=== PATIENT | female | born 1980 | race African-American/Black ===

== ENCOUNTER 2016-05-09 13:56 | Emergency (ER) | payer SELFPAY ==
[2016-05-09] MEDS ORDERED: PROMETHAZINE HCL 25 MG TABLET PO ONE (14:45)
--- NOTE | 2016-05-09 14:45 | ER Document Report ---
ED Medical Screen (RME) - General Stated Complaint: DIARRHEA,VOMITING Time seen by provider: 14:43 Mode of Arrival: Ambulatory Information source: Patient Notes: 36-year-old female presents to ED for diarrhea and vomiting with chills she denies fevers. Take this been going on for 2 days. She states that she has lower abdominal pain bilaterally for 2 days. 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 Last menstrual period was 02/21/2016. She states she is normally regular but she's taken several tests that were negative I have greeted and performed a rapid initial assessment of this patient. A comprehensive ED assessment and evaluation of the patient, analysis of test results and completion of medical decision making process will be conducted by an additional ED providers. TRAVEL OUTSIDE OF THE U.S. IN LAST 30 DAYS: No - Related Data Allergies/Adverse Reactions: No Known Allergies Allergy (Verified 08/04/13 06:59) Past Medical History - Past Medical History Cardiac Medical History: Reports: Hx Hypertension - Immunizations Hx Diphtheria, Pertussis, Tetanus Vaccination: Yes Physical Exam - Vital signs Vitals: Temp Pulse Resp BP Pulse Ox 98.2 F 91 16 141/91 H 98 05/09/16 14:41 05/09/16 14:41 05/09/16 14:41 05/09/16 14:41 05/09/16 14:41 Course - Vital Signs Vital signs: Temp Pulse Resp BP Pulse Ox 98.2 F 91 16 141/91 H 98 05/09/16 14:41 05/09/16 14:41 05/09/16 14:41 05/09/16 14:41 05/09/16 14:41
[2016-05-09 15:34] LABS: ABSOLUTE EOSINOPHILS # (AUTO) 0.1 10^3/uL (0.0-0.6); ABSOLUTE MONOCYTES (AUTO) 0.4 10^3/uL (0.1-1.4); ABSOLUTE NEUT (AUTO) 5.2 10^3/uL (1.7-8.2); BASOPHILS % (AUTO) 0.3 % (0-2); EOSINOPHILS % (AUTO) 1.1 % (0-6); HEMATOCRIT 38.3 % (36.0-47.0); HEMOGLOBIN 13.1 g/dL (12.0-15.5); LYMPHOCYTES % (AUTO) 26.1 % (13-45); MEAN CORPUSCULAR HEMOGLOBIN 29.7 pg (27.0-33.4); MEAN CORPUSCULAR HGB CONC 34.3 g/dL (32.0-36.0); MEAN CORPUSCULAR VOLUME 87 fl (80-97); MONOCYTES % (AUTO) 5.6 % (3-13); RED BLOOD COUNT 4.42 10^6/uL (3.72-5.28); RED CELL DISTRIBUTION WIDTH 14.2 % (11.5-14.0); SEGMENTED NEUTROPHILS % (AUTO) 66.9 % (42-78); WHITE BLOOD COUNT 7.8 10^3/uL (4.0-10.5)
[2016-05-09 15:39] LABS: APPEARANCE,URINE SLIGHTLY-CLOUDY; BILIRUBIN,URINE NEGATIVE (NEGATIVE); GLUCOSE, URINE NEGATIVE (NEGATIVE); KETONES,URINE NEGATIVE (NEGATIVE); LEUKOCYTE ESTERASE,URINE NEGATIVE (NEGATIVE); NITRITE,URINE NEGATIVE (NEGATIVE); PROTEIN,URINE NEGATIVE (NEGATIVE); UROBILINOGEN,URINE NEGATIVE mg/dL (<2.0)
[2016-05-09 16:02] LABS: ALANINE AMINOTRANSFERASE 18 U/L (9-52); ALBUMIN 4.6 g/dL (3.5-5.0); ALKALINE PHOSPHATASE 98 U/L (38-126); ANION GAP 14 (5-19); ASPARTATE AMINO TRANSFERASE 21 U/L (14-36); BILIRUBIN,DIRECT 0.3 mg/dL (0.0-0.4); BILIRUBIN,TOTAL 0.9 mg/dL (0.2-1.3); BLOOD UREA NITROGEN 9 mg/dL (7-20); CALCIUM 10.4 mg/dL (8.4-10.2); CARBON DIOXIDE 24 mmol/L (22-30); CHLORIDE 106 mmol/L (98-107); CREATININE RESULT 0.69 mg/dL (0.52-1.25); GLUCOSE 149 mg/dL (75-110); POTASSIUM 3.6 mmol/L (3.6-5.0); SODIUM 143.9 mmol/L (137-145)
--- NOTE | 2016-05-09 20:20 | ER Document Report ---
ED GI/ - General Chief Complaint: Nausea/Vomiting/Diarrhea Stated Complaint: DIARRHEA,VOMITING Mode of Arrival: Ambulatory Notes: Patient is a 36-year-old female that comes emergency department with chief complaint of nausea, vomiting, and a couple of loose stools. Patient states she has vomited 4 times today, she started feeling ill yesterday. Reports multiple sick contacts at work, states she thinks she got this and she needs a work. She denies any abdominal pain, flank pain, vaginal bleeding or discharge. She is unsure fever. She denies any recent antibiotics. She states she has missed a menstrual period for about 6 weeks, takes normal contraceptive. She has not had a menstrual period since she started a new job. Denies any abdominal surgeries or daily medications. TRAVEL OUTSIDE OF THE [place] IN LAST 30 DAYS: No - Related Data Allergies/Adverse Reactions: No Known Allergies Allergy (Verified 05/09/16 14:45) Past Medical History - General Information source: Patient - Social History Smoking Status: Current Every Day Smoker Chew tobacco use (# tins/day): No Frequency of alcohol use: Occasional Drug Abuse: None Lives with: Family Family History: Reviewed & Not Pertinent Patient has suicidal ideation: No Patient has homicidal ideation: No - Past Medical History Cardiac Medical History: Reports: Hx Hypertension Renal/ Medical History: Denies: Hx Peritoneal Dialysis Surgical Hx: Negative - Immunizations Hx Diphtheria, Pertussis, Tetanus Vaccination: Yes Review of Systems - Review of Systems Constitutional: No symptoms reported EENT: No symptoms reported Cardiovascular: No symptoms reported Respiratory: No symptoms reported Gastrointestinal: See HPI Genitourinary: No symptoms reported Female Genitourinary: No symptoms reported Musculoskeletal: No symptoms reported Skin: No symptoms reported Hematologic/Lymphatic: No symptoms reported Neurological/Psychological: No symptoms reported Physical Exam - Vital signs Vitals: Temp Pulse Resp BP Pulse Ox 98.2 F 91 16 141/91 H 98 05/09/16 14:41 05/09/16 14:41 05/09/16 14:41 05/09/16 14:41 05/09/16 14:41 Interpretation: Normal - General General appearance: Appears well, Alert In distress: None - Smiling and well-appearing - HEENT Head: Normocephalic, Atraumatic Eyes: Normal Pupils: PERRL - Respiratory Respiratory status: No respiratory distress Chest status: Nontender Breath sounds: Normal. No: Decreased air movement, Wheezing Chest palpation: Normal - Cardiovascular Rhythm: Regular. No: Tachycardia Heart sounds: Normal auscultation, S1 appreciated, S2 appreciated Murmur: No - Abdominal Inspection: Normal Distension: No distension Bowel sounds: Normal Tenderness: Nontender. No: Tender - Soft and benign Organomegaly: No organomegaly - Back Back: Normal, Nontender - Extremities General upper extremity: Normal inspection, Nontender, Normal color, Normal ROM , Normal temperature General lower extremity: Normal inspection, Nontender, Normal color, Normal ROM , Normal temperature, Normal weight bearing. No: Leila's sign - Neurological Neuro grossly intact: Yes Cognition: Normal Orientation: AAOx4 [place] Coma Scale Eye Opening: Spontaneous [place] Coma Scale Verbal: Oriented [place] Coma Scale Motor: Obeys Commands [place] Coma Scale Total: 15 Speech: Normal Motor strength normal: LUE, RUE, LLE, RLE Sensory: Normal - Psychological Associated symptoms: Normal affect, Normal mood - Skin Skin Temperature: Warm Skin Moisture: Dry Skin Color: Normal Course - Re-evaluation Re-evalutation: Laboratory workup generally unremarkable with no leukocytosis, generally unremarkable urine and chemistry. No tachycardia, fever, hypotension. Soft abdomen on my exam. Patient smiling and well-appearing. Patient states she feels great after the Phenergan. Will prescribe this at home. Patient is slightly hypertensive, she states that normally at home hers is normal, states she will follow this with primary care. She denies any headache or chest pain. She denies any current symptoms. Suspect patient has a viral syndrome, discussed primary care follow-up and return precautions. Patient states understanding and agreement. - Vital Signs Vital signs: Temp Pulse Resp BP Pulse Ox 98.3 F 87 16 162/104 H 100 05/09/16 21:47 05/09/16 21:47 05/09/16 21:47 05/09/16 21:47 05/09/16 21:47 - Laboratory Result Diagrams: 05/09/16 15:02 05/09/16 15:20 Laboratory results interpreted by me: 05/09/16 05/09/16 15:02 15:20 RDW 14.2 H Glucose 149 H Calcium 10.4 H Discharge - Discharge Clinical Impression: Nausea vomiting and diarrhea Condition: Stable Disposition: HOME, SELF-CARE Additional Instructions: test is negative. Workup, examination, and symptoms are most consistent with a viral syndrome, this should resolve on its own. I recommend Tylenol for fever/chills. Rest, hydrate, take the Phenergan if needed for nausea, start with bland foods to begin with. Return the emergency department for any concerning worsening symptoms including uncontrollable vomiting, severe abdominal pain, etc. Prescriptions: Promethazine HCl [Phenergan 25 mg Tablet] 1 - 2 tab PO Q6H PRN #20 tablet PRN Reason: Forms: Return to Work, Elevated Blood Pressure
[2016-05-09 21:49] VITALS: BP 162/104
== END 2016-05-09 20:32 | disposition home or self-care (01) ==
LOC: ER 13:56
DX: R11.2 Nausea with vomiting, unspecified (principal); R19.7 Diarrhea, unspecified; F17.200 Nicotine dependence, unspecified, uncomplicated; I10 Essential (primary) hypertension
CPT/HCPCS: 36415; 80053; 81001; 84703; 85025; 99284

== ENCOUNTER 2016-06-28 07:56 | Emergency (ER) | payer SELFPAY ==
--- NOTE | 2016-06-28 08:16 | ER Document Report ---
ED Respiratory Problem - General Chief Complaint: Cold Symptoms Stated Complaint: HEADACHE,FEVER Time Seen by Provider: 06/28/16 08:16 Mode of Arrival: Ambulatory Information source: Patient Notes: Patient is a 36-year-old Polish female who presents to the ER today for cough , congestion, runny nose, sore throat and pain in her chest with breathing that all began yesterday. She admits to fever, chills and body aches but has not taken her temperature. She tried some [place] [id number] cold medication that did not help. She denies any history of asthma. TRAVEL OUTSIDE OF THE [place] IN LAST 30 DAYS: No - Related Data Allergies/Adverse Reactions: No Known Allergies Allergy (Verified 06/28/16 08:00) Past Medical History - General Information source: Patient - Social History Smoking Status: Unknown if Ever Smoked Family History: Reviewed & Not Pertinent Patient has suicidal ideation: No Patient has homicidal ideation: No - Past Medical History Cardiac Medical History: Reports: Hx Hypertension Renal/ Medical History: Denies: Hx Peritoneal Dialysis - Immunizations Hx Diphtheria, Pertussis, Tetanus Vaccination: Yes Review of Systems - Review of Systems Constitutional: See HPI EENT: See HPI Cardiovascular: No symptoms reported Respiratory: See HPI Gastrointestinal: No symptoms reported Genitourinary: No symptoms reported Female Genitourinary: No symptoms reported Musculoskeletal: No symptoms reported Skin: No symptoms reported Hematologic/Lymphatic: No symptoms reported Neurological/Psychological: No symptoms reported Physical Exam - Vital signs Vitals: Temp Pulse Resp BP Pulse Ox 99.2 F 105 H 20 127/88 H 96 06/28/16 08:00 06/28/16 08:00 06/28/16 08:00 06/28/16 08:00 06/28/16 08:00 - Notes Notes: PHYSICAL EXAMINATION: GENERAL: Mildly ill-appearing, but in no acute distress. HEAD: Atraumatic, normocephalic. EYES: Pupils equal round and reactive to light, extraocular movements intact, sclera anicteric, conjunctiva are normal. ENT: ear canals without erythema or foreign body, TMs pearly olivas with good bony landmarks, nares with mucoid discharge, oropharynx erythematous with enlarged tonsils without exudates. Moist mucous membranes. NECK: Normal range of motion, supple without lymphadenopathy LUNGS: Chest nontender to palpation, Coughing, otherwise CTAB and equal. No wheezes rales or rhonchi. HEART: Regular rate and rhythm without murmurs EXTREMITIES: Normal range of motion, no pitting edema. No cyanosis. NEUROLOGICAL: Cranial nerves grossly intact. Normal sensory/motor exams. PSYCH: Normal mood, normal affect. SKIN: Warm, Dry, normal turgor, no rashes or lesions noted Course - Re-evaluation Re-evalutation: 06/28/16 09:08 Flu and strep are negative. Chest x-ray reveals no acute abnormality. Patient will be placed on conservative, symptomatic treatment. - Vital Signs Vital signs: Temp Pulse Resp BP Pulse Ox 99.2 F 105 H 20 127/88 H 96 06/28/16 08:00 06/28/16 08:00 06/28/16 08:00 06/28/16 08:00 06/28/16 08:00 Discharge - Discharge Clinical Impression: Upper respiratory infection Qualifiers: URI type: acute nasopharyngitis (common cold) Qualified Code(s): J00 - Acute nasopharyngitis [common cold] Instructions: Upper Respiratory Illness ([facility]), Fever ([facility]) Additional Instructions: Return immediately for any new or worsening symptoms. Follow up with primary care provider, call tomorrow to make followup appointment. Prescriptions: Hydrocodone Bit/Homatropine [Hycodan Syrup 5-1.5 mg/5 ml Ud Cup] 5 ml PO Q4HP PRN #120 ml PRN Reason: Fluticasone Propionate [Flonase Allergy Relief] 15.8 ml NS BID #1 spray.susp Ibuprofen [Motrin 800 mg Tablet] 800 mg PO Q8H PRN #30 tab PRN Reason: Forms: Return to Work
[2016-06-28] MEDS ORDERED: GUAIFENESIN/D-METHORPHAN (200-20 MG) SYRUP 10 ML PO ONE (08:24)
[2016-06-28] MEDS ORDERED: DIPHENHYDRAMINE HCL 50 MG CAPSULE PO ONE (08:24)
[2016-06-28] MEDS ORDERED: HYDROMORPHONE HCL INJ/PF 2 MG/ML AMPULE IV ONE (08:27)
[2016-06-28 09:34] VITALS: BP 137/86
== END 2016-06-28 09:34 | disposition home or self-care (01) ==
LOC: ER 07:56
DX: J00 Acute nasopharyngitis [common cold] (principal); R51 Headache; R05 Cough; J34.89 Other specified disorders of nose and nasal sinuses; I10 Essential (primary) hypertension
CPT/HCPCS: 99283; 87070; 87880; 87804; 71020; J3490

== ENCOUNTER 2016-09-26 06:35 | Emergency (ER) | payer SELFPAY ==
[2016-09-26] MEDS ORDERED: LIDOCAINE 1% INJ-PF (10 MG/ML) 30 ML SDV INJ ONE (07:18)
[2016-09-26] MEDS ORDERED: ONDANSETRON 4 MG TAB.RAPDIS PO ONE (07:18)
[2016-09-26] MEDS ORDERED: BUPIVACAINE HCL 0.5 % INJ/PF 30 ML SDV INJ ONE (07:18)
[2016-09-26] MEDS ORDERED: PENICILLIN V POTASSIUM 500 MG TABLET PO ONE (07:18)
[2016-09-26] MEDS ORDERED: OXYCODONE-ACETAMINOPHEN 5-325 MG TABLET PO ONE (07:18)
--- NOTE | 2016-09-26 07:23 | ER Document Report ---
ED ENT - General Chief Complaint: Facial Swelling Stated Complaint: FACIAL SWELLING/POSSIBLE INFECTED TOOTH Time Seen by Provider: 09/26/16 07:12 Notes: Patient is a 36-year-old female who presents emergency department complaining of right upper jaw pain with associated facial swelling. Patient states that she fractured her tooth a couple months ago without any problems with. Patient states that it started bothering her yesterday at work and she is taking over- the-counter Tylenol with moderate improvement in her symptoms. She states that her last dose was about 11 PM last evening. Patient states that she woke up this morning with swelling on her face and tenderness of her cheek. Otherwise denies any fever, chills, difficulty swallowing, difficulty breathing. Patient otherwise healthy TRAVEL OUTSIDE OF THE [place].S[place] IN LAST 30 DAYS: No - Related Data Allergies/Adverse Reactions: No Known Allergies Allergy (Verified 09/26/16 06:54) Past Medical History - Social History Smoking Status: Current Every Day Smoker Chew tobacco use (# tins/day): No Frequency of alcohol use: Occasional Drug Abuse: None Family History: Reviewed & Not Pertinent - Past Medical History Cardiac Medical History: Reports: Hx Hypertension Renal/ Medical History: Denies: Hx Peritoneal Dialysis Surgical Hx: Negative - Immunizations Hx Diphtheria, Pertussis, Tetanus Vaccination: Yes Review of Systems - Review of Systems Constitutional: No symptoms reported EENT: See HPI -: Yes All other systems reviewed and negative Physical Exam - Vital signs Vitals: Temp Pulse Resp BP Pulse Ox 98.5 F 88 20 164/99 H 98 09/26/16 06:42 09/26/16 06:42 09/26/16 06:42 09/26/16 06:42 09/26/16 06:42 - HEENT Head: Normocephalic, Atraumatic Eyes: Normal. No: Periorbital edema Conjunctiva: Normal Extraocular movements intact: Yes Eyelashes: Normal Pupils: PERRL Mouth/Lips: Dental fracture - on 2. No: Laceration Mucous membranes: Normal Pharynx: Normal. No: Blood in hypopharynx, Peritonsillar abscess, Retropharyngeal abscess, Potential airway comprom. Neck: Normal. No: Lymphadenopathy - Respiratory Respiratory status: No respiratory distress Chest status: Nontender Breath sounds: Normal Chest palpation: Normal - Cardiovascular Rhythm: Regular Heart sounds: Normal auscultation, S1 appreciated, S2 appreciated Murmur: No Gallop: None auscultated - Neurological Neuro grossly intact: Yes Cognition: Normal Orientation: AAOx4 [place] Coma Scale Eye Opening: Spontaneous [place] Coma Scale Verbal: Oriented [place] Coma Scale Motor: Obeys Commands [place] Coma Scale Total: 15 Speech: Normal Cranial nerves: Normal Cerebellar coordination: Normal Motor strength normal: LUE, RUE, LLE, RLE Additional motor exam normals: Equal physicist astrophysics, Weakness Sensory: Normal Course - Re-evaluation Re-evalutation: 09/26/16 08:31 Patient is a 36-year-old female who is hemodynamically stable, no acute distress and afebrile. Presentation is most consistent with likely an infected tooth. Airway is patent. Vitals within normal limits. Patient is able swallow without any difficulty. There is no significant facial swelling. Patient will be started on antibiotics and a limited number of pain medications. I've instructed to follow-up with dentistry as earliest ability for definitive management. Return precautions and follow-up recommendations have been discussed at length. - Vital Signs Vital signs: Temp Pulse Resp BP Pulse Ox 98.5 F 88 20 164/99 H 98 09/26/16 06:42 09/26/16 06:42 09/26/16 06:42 09/26/16 06:42 09/26/16 06:42 Discharge - Discharge Clinical Impression: Toothache Condition: Good Disposition: HOME, SELF-CARE Additional Instructions: TOOTHACHE: Your pain is due to dental decay. The tooth must be repaired in order for you to feel better. You will, therefore, be referred to a dentist. We do not have dentists on the staff at [facility]. Severe swelling or drainage around a tooth usually means a dental abscess. This also requires evaluation and treatment by the dentist, but antibiotics may be prescribed while awaiting dental treatment. You should be rechecked immediately if you develop major swelling of the face, increasing pain, a lump in the jaw or gums, headache, difficulty swallowing, or fever. ORAL NARCOTIC MEDICATION: You have been given a prescription for pain control. This medication is a narcotic. It's best taken with food, as nausea can result if taken on an empty stomach. Don't operate machinery or drive within six hours of taking this medication. Do not combine this medicine with alcohol, or with any medication which can cause sedation (such as cold tablets or sleeping pills) unless you get permission from the physician. Narcotics tend to cause constipation. If possible, drink plenty of fluids and eat a diet high in fiber and fruits. Please be aware that prescription narcotics also have the potential for abuse. People become addicted to these medications because of the general sense of wellbeing that they induce. This feeling along with a significant reduction in tension, anxiety, and aggression provides a stimulating seductive quality to these drugs. Once your pain is under control, we encourage you to discard your unused narcotics. PENICILLIN V K: You have been given a prescription for Penicillin VK. Your physician has determined that this is the best antibiotic for your condition. Pen VK can be taken with meals, however more of the antibiotic gets into the bloodstream if it's taken on an empty stomach. Penicillin usually has no side effects. However, allergy to penicillins is common. If you have had an allergic reaction to any drug of the penicillin family, you should never take any other penicillin. Notify your doctor at once if you develop hives, itching, swelling, faintness, or shortness of breath. FOLLOW-UP CARE: You have been referred for follow-up care to the dentists listed below. Call the dentists office for an appointment as you were instructed or within the next two days. If you experience worsening or a significant change in your symptoms, notify the physician immediately or return to the Emergency Department at any time for re-evaluation. [facility] [address] [place], [place] Monday mornings, by appointment [facility] [address] [place] [address] [facility] [address] [facility]. [facility] [address] [facility] [address] [facility] [address] [facility]. [email or web address] [facility] [address] [place] [address] Monday- 8:00am to 5:00 pm Will see patients from other [facility]. Charges based on income and family size and accepts Medicare, Medicaid, and Insurances Will pull molars [facility] [address] [address] Hours of Operation 8:00 am - 4:30 pm weekdays The following dental offices accept Medicaid: [facility] Dr. Jacobs Dr. Andrade Dr. Ken Dr. Geronimo Edward Looney, Jessy, and Leo oral surgery Dr. Arauz ([place]) Dr. Grady ([place]) [facility] Drs. Barraza ([place]) Dr. Maria ([place]) [facility] Dr. Hyatt ([place]) Drs. Arango and ([place]) Medicaid Care Line Prescriptions: Ibuprofen [Motrin 600 Mg Tablet] 600 mg PO TID #15 tablet Penicillin V Potassium [Penicillin Vk 500 mg Tablet] 500 mg PO BID #20 tablet
[2016-09-26] MEDS ORDERED: ONDANSETRON ODT 4 MG TAB (6 TAB/DSPK) PO PRN (08:48)
[2016-09-26] MEDS ORDERED: HYDROCODONE/ACETAMINOPHEN 5-325 MG 6 TAB/DSPK PO PRN (08:48)
[2016-09-26 09:15] VITALS: BP 163/93
== END 2016-09-26 09:09 | disposition home or self-care (01) ==
LOC: ER 06:35
DX: K08.89 Other specified disorders of teeth and supporting structures (principal); R22.0 Localized swelling, mass and lump, head; R68.84 Jaw pain; F17.200 Nicotine dependence, unspecified, uncomplicated
CPT/HCPCS: 99283; S0119; J3490

== ENCOUNTER 2017-01-06 08:24 | Emergency (ER) | payer SELFPAY ==
--- NOTE | 2017-01-06 08:47 | ER Document Report ---
HPI - HPI Pain Level: 5 - REPRODUCTIVE Reproductive: DENIES: : Past Medical History - Social History Family History: Reviewed & Not Pertinent - Past Medical History Cardiac Medical History: Reports: Hx Hypertension Renal/ Medical History: Denies: Hx Peritoneal Dialysis - Immunizations Hx Diphtheria, Pertussis, Tetanus Vaccination: Yes Vertical Provider Document - INFECTION CONTROL TRAVEL OUTSIDE OF THE [place].S. IN LAST 30 DAYS: No - RESPIRATORY O2 Sat by Pulse Oximetry: 98 Course - Vital Signs Vital signs: Temp Pulse Resp BP Pulse Ox 98.7 F 111 H 18 143/101 H 98 01/06/17 08:25 01/06/17 08:25 01/06/17 08:25 01/06/17 08:25 01/06/17 08:25
[2017-01-06] MEDS ORDERED: ONDANSETRON 4 MG TAB.RAPDIS PO ONE (08:48)
[2017-01-06] MEDS ORDERED: NORMAL SALINE 1000 ML 1,000 ML IV ONE (08:48)
--- NOTE | 2017-01-06 08:48 | ER Document Report ---
ED GI/ - General Chief Complaint: Nausea/Vomiting Stated Complaint: VOMITING Time Seen by Provider: 01/06/17 08:47 Mode of Arrival: Ambulatory Information source: Patient Notes: 36 yo normally healthy, smoker, 2 beers daily until monday, non drugs, no abd surgery, . Got off work monday, woke up with abd. cramps, low bcak pain, nausea, vomimting, and warery diarrhea (no blood). No recent antibioitics, no travel outside [place], works at [employer], No hx crohns, colitis, diverticulitis. No menses since Mar. (mom menopause at age 33) Fever Monday night to monday. Hx small gallstones. TRAVEL OUTSIDE OF THE [place] IN LAST 30 DAYS: No - Related Data Allergies/Adverse Reactions: No Known Allergies Allergy (Verified 01/06/17 08:30) Past Medical History - General Information source: Patient - Social History Smoking Status: Current Every Day Smoker Frequency of alcohol use: 2 beers daily until monday Drug Abuse: None Occupation: [employer] Lives with: Spouse/Significant other Family History: Reviewed & Not Pertinent - Past Medical History Cardiac Medical History: Reports: Hx Hypertension Renal/ Medical History: Denies: Hx Peritoneal Dialysis Surgical Hx: Negative - Immunizations Hx Diphtheria, Pertussis, Tetanus Vaccination: Yes Review of Systems - Review of Systems Constitutional: See HPI EENT: No symptoms reported Cardiovascular: No symptoms reported Respiratory: No symptoms reported Gastrointestinal: See HPI Genitourinary: No symptoms reported Female Genitourinary: No symptoms reported Musculoskeletal: No symptoms reported Skin: No symptoms reported Hematologic/Lymphatic: No symptoms reported Neurological/Psychological: No symptoms reported Physical Exam - Vital signs Vitals: Temp Pulse Resp BP Pulse Ox 98.7 F 111 H 18 143/101 H 98 01/06/17 08:25 01/06/17 08:25 01/06/17 08:25 01/06/17 08:25 01/06/17 08:25 Interpretation: Normal - General General appearance: Appears well, Alert - HEENT Head: Normocephalic, Atraumatic Eyes: Normal Conjunctiva: Normal Pupils: PERRL Neck: Supple. No: Lymphadenopathy - Respiratory Respiratory status: No respiratory distress Chest status: Nontender Breath sounds: Normal Chest palpation: Normal - Cardiovascular Rhythm: Regular Heart sounds: Normal auscultation Murmur: No - Abdominal Inspection: Normal Distension: No distension Bowel sounds: Normal Tenderness: Tender - mild epigastric, LUQ Organomegaly: No organomegaly - Back Back: Normal, Nontender. No: CVA tenderness - Extremities General upper extremity: Normal inspection, Nontender, Normal color, Normal ROM , Normal temperature General lower extremity: Normal inspection, Nontender, Normal color, Normal ROM , Normal temperature, Normal weight bearing. No: Leila's sign - Neurological Neuro grossly intact: Yes Cognition: Normal Orientation: AAOx4 [place] Coma Scale Eye Opening: Spontaneous [place] Coma Scale Verbal: Oriented [place] Coma Scale Motor: Obeys Commands [place] Coma Scale Total: 15 Speech: Normal Motor strength normal: LUE, RUE, LLE, RLE Sensory: Normal - Psychological Associated symptoms: Normal affect, Normal mood - Skin Skin Temperature: Warm Skin Moisture: Dry Skin Color: Normal Skin irregularity: negative: Rash Course - Re-evaluation Re-evalutation: 01/06/17 11:01 feels better after 1 liter NS, feels hungary. Needs work note. Non tender abdomen. Labs normal except for bilirubin mild elevation. 01/06/17 11:13 01/06/17 11:13 - Vital Signs Vital signs: Temp Pulse Resp BP Pulse Ox 98.7 F 88 18 138/89 H 98 01/06/17 11:04 01/06/17 11:04 01/06/17 08:25 01/06/17 11:04 01/06/17 11:04 - Laboratory Result Diagrams: 01/06/17 09:40 01/06/17 09:40 Laboratory results interpreted by me: 01/06/17 01/06/17 08:40 09:40 Glucose 115 H Total Bilirubin 1.9 H Direct Bilirubin 0.6 H AST 37 H Total Protein 8.4 H Urine Protein 100 H Urine Ketones TRACE H Urine Blood SMALL H Discharge - Discharge Clinical Impression: elevated blood pressure, Vomiting and diarrhea, Dehydration Condition: Good Disposition: HOME, SELF-CARE Instructions: Diarrhea, Nonspecific ([facility]), Family Physicians / Practices, Nausea or Vomiting, Nonspecific ([facility]), Stop Smoking ([facility]) Additional Instructions: continue to hydrate today call me in am if need to be out of work tomorrow too. [phone] to er if worse Forms: Return to Work
[2017-01-06 09:40] LABS: APPEARANCE,URINE SLIGHTLY-CLOUDY; BILIRUBIN,URINE NEGATIVE (NEGATIVE); GLUCOSE, URINE NEGATIVE (NEGATIVE); KETONES,URINE TRACE mg/dL (NEGATIVE); LEUKOCYTE ESTERASE,URINE NEGATIVE (NEGATIVE); NITRITE,URINE NEGATIVE (NEGATIVE); PROTEIN,URINE 100 mg/dL (NEGATIVE); URINE SPECIFIC GRAVITY 1.019; UROBILINOGEN,URINE NEGATIVE mg/dL (<2.0)
[2017-01-06 09:55] LABS: ABSOLUTE EOSINOPHILS # (AUTO) 0.1 10^3/uL (0.0-0.6); ABSOLUTE LYMPHOCYTES (AUTO) 1.8 10^3/uL (0.5-4.7); ABSOLUTE MONOCYTES (AUTO) 0.4 10^3/uL (0.1-1.4); ABSOLUTE NEUT (AUTO) 5.3 10^3/uL (1.7-8.2); BASOPHILS % (AUTO) 0.3 % (0-2); EOSINOPHILS % (AUTO) 0.7 % (0-6); HEMOGLOBIN 14.5 g/dL (12.0-15.5); HGB HCT DIFFERENCE 2.5; LYMPHOCYTES % (AUTO) 23.9 % (13-45); MEAN CORPUSCULAR HEMOGLOBIN 31.8 pg (27.0-33.4); MEAN CORPUSCULAR HGB CONC 35.3 g/dL (32.0-36.0); MEAN CORPUSCULAR VOLUME 90 fl (80-97); MONOCYTES % (AUTO) 5.7 % (3-13); RED BLOOD COUNT 4.56 10^6/uL (3.72-5.28); RED CELL DISTRIBUTION WIDTH 13.7 % (11.5-14.0); SEGMENTED NEUTROPHILS % (AUTO) 69.4 % (42-78); WHITE BLOOD COUNT 7.6 10^3/uL (4.0-10.5)
[2017-01-06 10:28] LABS: ALANINE AMINOTRANSFERASE 26 U/L (9-52); ALBUMIN 4.9 g/dL (3.5-5.0); ALKALINE PHOSPHATASE 122 U/L (38-126); ANION GAP 16 (5-19); ASPARTATE AMINO TRANSFERASE 37 U/L (14-36); BILIRUBIN,DIRECT 0.6 mg/dL (0.0-0.4); BILIRUBIN,TOTAL 1.9 mg/dL (0.2-1.3); BLOOD UREA NITROGEN 10 mg/dL (7-20); CALCIUM 10.1 mg/dL (8.4-10.2); CARBON DIOXIDE 24 mmol/L (22-30); CHLORIDE 103 mmol/L (98-107); CREATININE RESULT 0.62 mg/dL (0.52-1.25); GLUCOSE 115 mg/dL (75-110); LIPASE 169.9 U/L (23-300); SODIUM 142.8 mmol/L (137-145); TOTAL PROTEIN 8.4 g/dL (6.3-8.2)
[2017-01-06 11:06] VITALS: BP 138/89
== END 2017-01-06 11:25 | disposition home or self-care (01) ==
LOC: ER 08:24
DX: E86.0 Dehydration (principal); R03.0 Elevated blood-pressure reading, without diagnosis of hypertension; R11.2 Nausea with vomiting, unspecified; R19.7 Diarrhea, unspecified; R10.9 Unspecified abdominal pain; M54.5 Low back pain; F17.200 Nicotine dependence, unspecified, uncomplicated
CPT/HCPCS: 99284; 96360; 36415; 87086; 83690; 84443; 84703; 85025; 80053; 81001; S0119; J7030

== ENCOUNTER 2018-10-03 08:07 | Emergency (ER) | payer SELFPAY ==
[2018-10-03 08:23] VITALS: BP 151/92
[2018-10-03] MEDS ORDERED: FAMOTIDINE INJ/PF 20 MG/2 ML SDV IV ONE (09:26)
[2018-10-03] MEDS ORDERED: ONDANSETRON HCL INJ/PF 4 MG/2 ML SDV IV ONE (09:26)
[2018-10-03] MEDS ORDERED: NORMAL SALINE 1000 ML 1,000 ML IV ONE (09:26)
--- NOTE | 2018-10-03 09:27 | ER Document Report ---
ED Medical Screen (RME) - General Chief Complaint: Abdominal Pain Stated Complaint: SWOLLEN MOUTH Time Seen by Provider: 10/03/18 09:25 Notes: Patient is a 38-year-old female with a history of hypertension who presents to the emergency department with a chief complaint of nausea, vomiting and diarrhea. Patient states that yesterday afternoon she had to leave work around 1:30 PM as she developed vomiting. Patient states that over the past 24 hours she has vomited over 10 times. Patient denies sick contacts. Patient states she has had a few episodes of diarrhea that she reports is tacky brown in color. Patient denies dark or bloody stools. Patient denies fever or urinary symptoms. Patient reports a pressure to her lower back. Patient does complain of generalized abdominal pain but specifically points to the epigastric and lowe r abdominal area. Patient states that this feels like a throbbing ache. Patient states she has not tolerated anything by mouth. Patient states she does have a history of hypertension but does not take medications as she does not have a primary care physician. Patient reports that she woke up this morning with numbness on the inside of the right lower mouth. Patient states she did have a tooth pulled in the right upper mouth 1 month ago. She feels like her mouth is slightly swollen. TRAVEL OUTSIDE OF THE [place] IN LAST 30 DAYS: No - Related Data Allergies/Adverse Reactions: No Known Allergies Allergy (Verified 10/03/18 08:09) Past Medical History - Past Medical History Cardiac Medical History: Reports: Hx Hypertension Renal/ Medical History: Denies: Hx Peritoneal Dialysis - Immunizations Hx Diphtheria, Pertussis, Tetanus Vaccination: Yes Physical Exam - Vital signs Vitals: Temp Pulse Resp BP Pulse Ox 98.5 F 95 16 151/92 H 97 10/03/18 08:21 10/03/18 08:21 10/03/18 08:21 10/03/18 08:21 10/03/18 08:21 - HEENT Head: Normocephalic Nasal: Normal Mouth/Lips: Normal Mucous membranes: Normal Pharynx: Normal Neck: Normal - Abdominal Inspection: Normal, Striae Bowel sounds: Normal Tenderness: Nontender Organomegaly: No organomegaly Course - Re-evaluation Re-evalutation: 10/03/18 09:32 I have greeted and performed a rapid initial assessment of this patient. A comprehensive ED assessment and evaluation of the patient, analysis of test results and completion of the medical decision making process will be conducted by additional ED providers. - Vital Signs Vital signs: Temp Pulse Resp BP Pulse Ox 98.5 F 95 16 151/92 H 97 10/03/18 08:21 10/03/18 08:21 10/03/18 08:21 10/03/18 08:21 10/03/18 08:21
[2018-10-03 09:49] LABS: ABSOLUTE EOSINOPHILS # (AUTO) 0.1 10^3/uL (0.0-0.6); ABSOLUTE LYMPHOCYTES (AUTO) 1.3 10^3/uL (0.5-4.7); ABSOLUTE MONOCYTES (AUTO) 0.5 10^3/uL (0.1-1.4); ABSOLUTE NEUT (AUTO) 8.1 10^3/uL (1.7-8.2); BASOPHILS % (AUTO) 0.3 % (0-2); EOSINOPHILS % (AUTO) 0.9 % (0-6); HEMATOCRIT 33.3 % (36.0-47.0); HEMOGLOBIN 11.5 g/dL (12.0-15.5); LYMPHOCYTES % (AUTO) 13.4 % (13-45); MEAN CORPUSCULAR HEMOGLOBIN 33.6 pg (27.0-33.4); MEAN CORPUSCULAR HGB CONC 34.4 g/dL (32.0-36.0); MEAN CORPUSCULAR VOLUME 98 fl (80-97); MONOCYTES % (AUTO) 4.7 % (3-13); PLATELET COUNT 343 10^3/uL (150-450); RED BLOOD COUNT 3.41 10^6/uL (3.72-5.28); RED CELL DISTRIBUTION WIDTH 14.7 % (11.5-14.0); SEGMENTED NEUTROPHILS % (AUTO) 80.7 % (42-78); TOTAL CELLS COUNTED % (AUTO) 100 %
[2018-10-03 09:59] LABS: ALBUMIN 4.6 g/dL (3.5-5.0); ALKALINE PHOSPHATASE 113 U/L (38-126); ANION GAP 10 (5-19); ASPARTATE AMINO TRANSFERASE 36 U/L (14-36); BILIRUBIN,DIRECT 0.4 mg/dL (0.0-0.4); BILIRUBIN,TOTAL 1.2 mg/dL (0.2-1.3); BLOOD UREA NITROGEN 6 mg/dL (7-20); CALCIUM 10.2 mg/dL (8.4-10.2); CARBON DIOXIDE 23 mmol/L (22-30); CHLORIDE 108 mmol/L (98-107); GLUCOSE 100 mg/dL (75-110); POTASSIUM 4.2 mmol/L (3.6-5.0); TOTAL PROTEIN 7.9 g/dL (6.3-8.2)
[2018-10-03] MEDS ORDERED: DIPHENHYDRAMINE HCL 50 MG/ML VIAL IV ONE (10:05)
[2018-10-03] MEDS ORDERED: KETOROLAC TROMETHAMINE INJ/PF 30 MG/1 ML SDV IV ONE (10:05)
[2018-10-03] MEDS ORDERED: METOCLOPRAMIDE HCL INJ/PF 10 MG/2 ML SDV IV ONE (10:05)
[2018-10-03] MEDS ORDERED: RINGERS SOLUTION,LACTATED 1,000 ML IV ONE (10:06)
[2018-10-03] MEDS ORDERED: LOPERAMIDE HCL 2 MG CAPSULE PO ONE (10:06)
[2018-10-03 10:09] LABS: AMORPHOUS SEDIMENT,URINE TRACE /HPF; APPEARANCE,URINE CLOUDY; BILIRUBIN,URINE NEGATIVE (NEGATIVE); COLOR,URINE YELLOW; GLUCOSE, URINE NEGATIVE (NEGATIVE); KETONES,URINE TRACE mg/dL (NEGATIVE); LEUKOCYTE ESTERASE,URINE MODERATE (NEGATIVE); NITRITE,URINE NEGATIVE (NEGATIVE); PROTEIN,URINE 30 mg/dL (NEGATIVE); URINE SPECIFIC GRAVITY 1.012; UROBILINOGEN,URINE NEGATIVE mg/dL (<2.0)
--- NOTE | 2018-10-03 10:12 | ER Document Report ---
ED General - General Chief Complaint: Abdominal Pain Stated Complaint: SWOLLEN MOUTH Time Seen by Provider: 10/03/18 09:25 Mode of Arrival: Ambulatory Information source: Patient, [facility], [facility] Records Notes: 38-year-old female with hypertension presents to the emergency department with a chief complaint of nausea, vomiting and diarrhea. Patient states that yesterday afternoon she had to leave work around 1:30 PM as she developed vomiting. Patient states that over the past 24 hours she has vomited over 10 times. Patient denies sick contacts. Patient states she has had a few episodes of diarrhea that she reports is tacky brown in color. Patient denies dark or bloody stools. Patient denies fever or urinary symptoms. Patient reports a pressure to her lower back. Patient does complain of generalized abdominal pain but specifically points to the epigastric and lower abdominal area. Patient states that this feels like a throbbing ache. Patient states she has not tolerated anything by mouth. Patient states she does have a history of hypertension but does not take medications as she does not have a primary care physician. Patient reports that she woke up this morning with numbness on the inside of the right lower mouth. Patient states she did have a tooth pulled in the right upper mouth 1 month ago. She feels like her mouth is slightly swollen. Patient did receive IV fluids, Zofran, Pepcid prior to my exam and does report improvement of her epigastric abdominal pain and nausea. TRAVEL OUTSIDE OF THE [place] IN LAST 30 DAYS: No - HPI Onset: Yesterday Onset/Duration: Gradual, Persistent, Better Quality of pain: Cramping Severity: Mild Associated symptoms: Body/muscle aches, Diarrhea, Earache, Headache, Nausea, Vomiting. denies: Chest pain, Fever, Shortness of breath Exacerbated by: Denies Relieved by: Denies Similar symptoms previously: No Recently seen / treated by doctor: No - Related Data Allergies/Adverse Reactions: Sulfa (Sulfonamide Antibiotics) Adverse Reaction (Verified 10/03/18 10:00) Past Medical History - General Information source: Patient, [facility] Records - Social History Smoking Status: Current Every Day Smoker Cigarette use (# per day): Yes - 15 Smoking Education Provided: Yes - Smoking cessation counseling was provided for 4 minutes at the bedside Frequency of alcohol use: Heavy Drug Abuse: None Lives with: Family Family History: Reviewed & Not Pertinent Patient has suicidal ideation: No Patient has homicidal ideation: No - Past Medical History Cardiac Medical History: Reports: Hx Hypertension Renal/ Medical History: Denies: Hx Peritoneal Dialysis - Immunizations Hx Diphtheria, Pertussis, Tetanus Vaccination: Yes Review of Systems - Review of Systems Notes: REVIEW OF SYSTEMS: CONSTITUTIONAL : Denies fever, chills, or sweats. Denies recent illness. Denies weight loss, recent hospitalizations. EENT: Denies visual changes, eye pain. Denies sore throat, oral lesions, difficulty swallowing. CARDIOVASCULAR: Denies chest pain. Denies palpitations. Denies lower extremity edema. RESPIRATORY: Denies cough. Denies shortness of breath, wheezing. GASTROINTESTINAL: Denies abdominal distention. + nausea, vomiting, diarrhea. Denies blood in vomitus, stools, or per rectum. Denies black, tarry stools. Denies constipation. GENITOURINARY: Denies difficulty urinating, painful urination, frequency, blood in urine, or vaginal discharge. MUSCULOSKELETAL: Denies back or neck pain or stiffness. Denies joint pain or swelling. SKIN: Denies rash, lesions or sores. HEMATOLOGIC : Denies easy bruising or bleeding. LYMPHATIC: Denies swollen glands. NEUROLOGICAL: Denies confusion or altered mental status. Denies loss of consciousness. Denies dizziness or lightheadedness. Denies headache. Denies weakness or paralysis. Denies problems difficulty with ambulation, slurred speech. Denies sensory loss, or tingling. Denies seizures. PSYCHIATRIC: Denies anxiety or stress. Denies depression, suicidal ideation, or homicidal ideation. Denies visual or auditory hallucinations. Physical Exam - Vital signs Vitals: Temp Pulse Resp BP Pulse Ox 98.5 F 95 16 151/92 H 97 10/03/18 08:21 10/03/18 08:21 10/03/18 08:21 10/03/18 08:21 10/03/18 08:21 - Notes Notes: PHYSICAL EXAMINATION: GENERAL: Well-appearing, well-nourished and in no acute distress. HEAD: Atraumatic, normocephalic. EYES: Pupils equal round and reactive to light, extraocular movements intact, conjunctiva are normal. ENT: Nares patent, oropharynx clear without exudates. Moist mucous membranes. NECK: Normal range of motion, supple without lymphadenopathy LUNGS: Breath sounds clear to auscultation bilaterally and equal. No wheezes rales or rhonchi. HEART: Regular rate and rhythm without murmurs ABDOMEN: Soft, mild tenderness with palpation to the epigastrium, nondistended abdomen. No guarding, no rebound. No masses appreciated. Female : deferred Musculoskeletal: Normal range of motion, no pitting or edema. No cyanosis. NEUROLOGICAL: Mental status; alert and oriented x3. Cranial nerves II through XII intact. Sensation intact to sharp/dull differentiation in all extremities. Motor; normal tone. No abnormal movements appreciated. No pronator drift. Strength tested and 5/5 in bilateral wrist flexion/extension, elbow flexion/extension, shoulder abduction, straight leg raise, knee flexion/extension, ankle dorsiflexion/plantar flexion. Patient ambulates with a steady gait. Coordination; no ataxia. Finger to nose and heel to meza testing intact bilaterally. Reflexes; brachial radialis, biceps, and patellar reflexes within normal limits and symmetric bilaterally. Babinski with downgoing toes bilaterally. PSYCH: Normal mood, normal affect. SKIN: Warm, Dry, normal turgor, no rashes or lesions noted. Course - Re-evaluation Re-evalutation: 10/03/18 10:10 Temp Pulse Resp BP Pulse Ox 98.5 F 95 16 151/92 H 97 10/03/18 08:21 10/03/18 08:21 10/03/18 08:21 10/03/18 08:21 10/03/18 08:21 Laboratory 10/03/18 10/03/18 10/03/18 09:25 09:25 09:25 WBC 10.0 RBC 3.41 L Hgb 11.5 L Hct 33.3 L MCV 98 H MCH 33.6 H MCHC 34.4 RDW 14.7 H Plt Count 343 Seg Neutrophils % 80.7 H Lymphocytes % 13.4 Monocytes % 4.7 Eosinophils % 0.9 Basophils % 0.3 Absolute Neutrophils 8.1 Absolute Lymphocytes 1.3 Absolute Monocytes 0.5 Absolute Eosinophils 0.1 Absolute Basophils 0.0 Sodium 141.0 Potassium 4.2 Chloride 108 H Carbon Dioxide 23 Anion Gap 10 BUN 6 L Creatinine 0.68 Est GFR ( Amer) > 60 Est GFR (Non-Af Amer) > 60 Glucose 100 Calcium 10.2 Total Bilirubin 1.2 Direct Bilirubin 0.4 Neonat Total Bilirubin Not Reportable Neonat Direct Bilirubin Not Reportable Neonat Indirect Bili Not Reportable AST 36 ALT 22 Alkaline Phosphatase 113 Total Protein 7.9 Albumin 4.6 Lipase 60.8 Serum HCG, Qual NEGATIVE Urine Color Urine Appearance Urine pH Ur Specific [place] Urine Protein Urine Glucose (UA) Urine Ketones Urine Blood Urine Nitrite Urine Bilirubin Urine Urobilinogen Ur Leukocyte Esterase Urine WBC (Auto) Urine RBC (Auto) U Hyaline Cast (Auto) Urine Bacteria (Auto) Squamous Epi Cells Auto Amorphous Sediment Auto Urine Mucus (Auto) Urine Ascorbic Acid 10/03/18 09:50 WBC RBC Hgb Hct MCV MCH MCHC RDW Plt Count Seg Neutrophils % Lymphocytes % Monocytes % Eosinophils % Basophils % Absolute Neutrophils Absolute Lymphocytes Absolute Monocytes Absolute Eosinophils Absolute Basophils Sodium Potassium Chloride Carbon Dioxide Anion Gap BUN Creatinine Est GFR ( Amer) Est GFR (Non-Af Amer) Glucose Calcium Total Bilirubin Direct Bilirubin Neonat Total Bilirubin Neonat Direct Bilirubin Neonat Indirect Bili AST ALT Alkaline Phosphatase Total Protein Albumin Lipase Serum HCG, Qual Urine Color YELLOW Urine Appearance CLOUDY Urine pH 5.0 Ur Specific [place] 1.012 Urine Protein 30 H Urine Glucose (UA) NEGATIVE Urine Ketones TRACE H Urine Blood SMALL H Urine Nitrite NEGATIVE Urine Bilirubin NEGATIVE Urine Urobilinogen NEGATIVE Ur Leukocyte Esterase MODERATE H Urine WBC (Auto) 17 Urine RBC (Auto) 3 U Hyaline Cast (Auto) 8 Urine Bacteria (Auto) TRACE Squamous Epi Cells Auto 16 Amorphous Sediment Auto TRACE Urine Mucus (Auto) OCC Urine Ascorbic Acid NEGATIVE Abdomen Ultrasound 10/03/18 10:05 IMPRESSION: Cholelithiasis without secondary evidence of acute cholecystitis. 38-year-old female with hypertension presents with 1 day of nausea, vomiting, diarrhea. Vital signs reviewed and patient is mildly hypertensive but afebrile, not tachycardic. She does not appear toxic or dehydrated. She is in no acute distress. Previous medical records and nursing notes reviewed. Patient's abdominal exam significant for mild epigastric tenderness without guarding or rebound. Patient did receive IV fluids, Zofran, Pepcid and does report improvement of her nausea. She is currently complaining of a headache so Reglan and Benadryl as well as Toradol will be administered. Awaiting labs and right upper quadrant ultrasound. 10/03/18 12:23 Presentation of an overall well-appearing patient in no acute distress with complaints of nausea, vomiting, diarrhea. This is consistent with likely viral gastroenteritis. Patient has no abdominal tenderness on exam and specifically no tenderness in the RLQ, LLQ, RUQ. Overall well hydrated on exam. Able to tolerate oral intake here in the emergency department. Low clinical suspicion for any acute life-threatening etiology based on exam and history including acute cholecystitis, SBO, appendicitis, nephrolithiasis, or pylonephritis. CMP without evidence of acute hepatitis or significant dehydration. Will plan for discharge at this time with return precautions and followup recommendations. - Vital Signs Vital signs: Temp Pulse Resp BP Pulse Ox 98.5 F 95 16 151/92 H 97 10/03/18 08:21 10/03/18 08:21 10/03/18 08:21 10/03/18 08:21 10/03/18 08:21 - Laboratory Result Diagrams: 10/03/18 09:25 10/03/18 09:25 Laboratory results interpreted by me: 10/03/18 10/03/18 10/03/18 09:25 09:25 09:50 RBC 3.41 L Hgb 11.5 L Hct 33.3 L MCV 98 H MCH 33.6 H RDW 14.7 H Seg Neutrophils % 80.7 H Chloride 108 H BUN 6 L Urine Protein 30 H Urine Ketones TRACE H Urine Blood SMALL H Ur Leukocyte Esterase MODERATE H - Diagnostic Test Radiology reviewed: Image reviewed, Reports reviewed Discharge - Discharge Clinical Impression: Nausea vomiting and diarrhea, Gallstones Condition: Good Disposition: HOME, SELF-CARE Instructions: Gallbladder Disease ([facility]), Low-Fat Diet ([facility]), Viral Syndrome ([facility]), Intravenous (IV) Fluids ([facility]), Vomiting ([facility]) Additional Instructions: Your symptoms are likely due to a viral illness and should resolve in the next several days. You can take [id number] loperamide also known as Imodium as needed for diarrhea per box instructions. Continue to stay hydrated with plenty of solution such as Gatorade or Pedialyte. You are being prescribed Zofran to take as needed for nausea and vomiting. Please return if you develop severe abdominal pain, pass out, become unable to tolerate any oral fluids for 12 more hours, or any other symptoms that are concerning to you. Prescriptions: Famotidine [Pepcid 40 mg Tablet] 40 mg PO DAILY #10 tablet Ondansetron [Zofran Odt 4 mg Tablet] 1 - 2 tab PO Q4H PRN #15 tab.rapdis PRN Reason: For Nausea/Vomiting Forms: Elevated Blood Pressure, Return to Work
--- NOTE | 2018-10-03 12:15 | RADIOLOGY REPORT (SQ) ---
EXAM DESCRIPTION: U/S ABDOMEN LIMITED W/O DOP COMPLETED DATE/TIME: 10/03/2018 12:06 pm REASON FOR STUDY: Epigastric abdominal pain history of gallstones COMPARISON: 08/23/2013 TECHNIQUE: Dynamic and static grayscale images acquired of the abdomen and recorded on PACS. [place] sonya selected color Doppler and spectral images recorded. LIMITATIONS: None. FINDINGS: PANCREAS: No masses. Visualized pancreatic duct normal caliber. LIVER: No masses. Echotexture normal. LIVER VASCULATURE: Normal directional flow of the main portal vein and hepatic veins. GALLBLADDER: Gallstone(s). No pericholecystic fluid. No wall thickening. ULTRASOUND-DETECTED AYALA'S SIGN: Negative. INTRAHEPATIC DUCTS AND COMMON DUCT: CBD and intrahepatic ducts normal caliber. No filling defects. INFERIOR VENA CAVA: Normal flow. AORTA: No aneurysm. RIGHT KIDNEY: Normal size. Normal echogenicity. No solid or suspicious masses. No hydronephrosis. No calcifications. PERITONEAL AND RIGHT PLEURAL SPACE: No ascites or effusions. OTHER: No other significant findings. IMPRESSION: Cholelithiasis without secondary evidence of acute cholecystitis. TECHNICAL DOCUMENTATION: JOB ID: [id number] [employer]- All Rights Reserved Reading location - IP/workstation name: [email or web address]
== END 2018-10-03 13:32 | disposition home or self-care (01) ==
LOC: ER 08:07
DX: K80.20 Calculus of gallbladder without cholecystitis without obstruction (principal); R11.2 Nausea with vomiting, unspecified; R19.7 Diarrhea, unspecified; M79.10 Myalgia, unspecified site; F17.210 Nicotine dependence, cigarettes, uncomplicated; Z88.2 Allergy status to sulfonamides
CPT/HCPCS: 36415; 83690; 84703; 85025; 80053; 81001; 76705; J1200; J1885; J2765; J2405; J7030; J7120; S0028; 96361; 96374; 96375; 99283; 99406

== ENCOUNTER 2019-06-17 16:51 | Emergency (ER) | payer SELFPAY ==
--- NOTE | 2019-06-17 18:39 | ER Document Report ---
ED General - General Chief Complaint: Leg Pain Stated Complaint: LEFT LEG NUMBNESS Time Seen by Provider: 06/17/19 18:14 TRAVEL OUTSIDE OF THE [place] IN LAST 30 DAYS: No - HPI Notes: Patient is a 39-year-old female who presents to the emergency department for evaluation of left leg numbness and weakness. She states 3 days ago she woke in the morning and her left leg was numb. She admits she had been drinking the night before, and passed out on the couch. She states her foot was "trailing behind her." She states she did a quick exam at home on herself, with her sister, and noticed no other deficits. She worked for the next 2 days. She states that her leg symptoms have not improved. She denies any pain, but she states occasionally "it throbs." She really cannot describe it better than that. She denies any difficulty seeing, speaking, swallowing. Moving her other arms and right leg without difficulty. - Related Data Allergies/Adverse Reactions: Sulfa (Sulfonamide Antibiotics) Adverse Reaction (Verified 06/17/19 18:18) Home Medications: None Past Medical History - General Information source: Patient - Social History Smoking Status: Current Every Day Smoker Frequency of alcohol use: Rare Drug Abuse: None Family History: Reviewed & Not Pertinent, CAD, Malignancy Patient has suicidal ideation: No Patient has homicidal ideation: No - Past Medical History Cardiac Medical History: Reports: Hx Hypertension - Untreated currently Renal/ Medical History: Denies: Hx Peritoneal Dialysis - Immunizations Hx Diphtheria, Pertussis, Tetanus Vaccination: Yes Review of Systems - Review of Systems Neurological/Psychological: See HPI -: Yes All other systems reviewed and negative Physical Exam - Vital signs Vitals: Temp Pulse Resp BP Pulse Ox 98.3 F 98 20 153/112 H 98 06/17/19 16:56 06/17/19 16:56 06/17/19 16:56 06/17/19 16:56 06/17/19 16:56 - Notes Notes: Vital signs reviewed, please refer to chart. Head is normocephalic, atraumatic. Pupils equal round, reactive to light. Neck is supple without meningismus. Heart is regular rate and rhythm. Lungs are clear to auscultation bilaterally. Abdomen is soft, nontender, normoactive bowel sounds throughout. Extremities without cyanosis, clubbing. Posterior calves are nontender. Peripheral pulses are equal. Skin is warm and dry. Patient is awake, alert, oriented x3. Cranial nerves II - XII are grossly intact without focal neurological deficits. Strength is plus 5 out of 5 bilateral upper and right lower extremity. Sensation is intact to these extremities as well. Examination of the left lower extremity yields no obvious deformity. She has 4+ out of 5 strength at the hip flexor and with plantar flexion. Remainder of the extremity yields +5/5 strength. Sensation diminished to light touch from the left knee to the ankle, but intact to pressure. Reflex testing revealed 1+ patellar and 1+ Achilles bilaterally. Intact [id number], rapid alternating movements, [id number]. Course - Re-evaluation Re-evalutation: 06/17/19 18:39 Patient presents to the emergency department for evaluation of numbness and weakness in the left lower extremity. She is 3 days out from the onset of symptoms, so if this is in fact a CVA, she is certainly not a candidate for any sort of intervention at this time. She has no other focal neurological deficits. She is hypertensive, but has a known history of this and is currently untreated. She admits she was drinking the night before her symptoms, which makes a significant palsy a possible etiology for her symptoms as well. At this point we will order a CT scan of her head. She is stable at this time, we will continue to monitor. 06/17/19 19:25 I went back and reevaluate the patient. Upon rechecking reflexes, the patient actually had improved sensation. We talked at length about the possibility of a very subtle stroke, which would require MRI for diagnosis. She does not wish to have this test performed, and understands that I am unable to fully rule out a small stroke as the cause of her symptoms. At this point I do not believe it would manager change. I suspect patient to have a palsy which is causing her symptoms, and will place her on a steroid taper to treat. She is counseled to quit smoking, establish with a PCP, and return to the ER with worsening. - Vital Signs Vital signs: Temp Pulse Resp BP Pulse Ox 98.3 F 98 20 153/112 H 98 06/17/19 18:13 06/17/19 16:56 06/17/19 16:56 06/17/19 16:56 06/17/19 16:56 - Diagnostic Test Radiology reviewed: Reports reviewed Radiology results interpreted by me: 06/17/19 19:[address] 06/17/19 18:33 IMPRESSION: No acute intracranial hemorrhage, mass, or evidence of acute territorial infarct. EVIDENCE OF ACUTE STROKE: NO. Discharge - Discharge Clinical Impression: Numbness in left leg, Weakness of left leg Condition: Stable Disposition: HOME, SELF-CARE Instructions: Numbness or Paresthesia ([facility]), Weakness ([facility]) Additional Instructions: Your CT scan of your head was normal. As discussed, a very subtle stroke could cause the symptoms, but would require further testing, such as an MRI, which you have stated you do not want at this time. I suspect your symptoms are due to a nerve palsy. Please take all of the prednisone as directed until gone. Follow up with PCP this week. If you develop increased weakness, numbness, difficulty seeing, speaking, or swallowing, or any other new or concerning symptoms, return to the ER for further evaluation.
--- NOTE | 2019-06-17 19:07 | RADIOLOGY REPORT (SQ) ---
EXAM DESCRIPTION: CT HEAD WITHOUT IMAGES COMPLETED DATE/TIME: 06/17/2019 5:54 pm REASON FOR STUDY: Left leg weakness COMPARISON: None. TECHNIQUE: Axial images acquired through the brain without intravenous contrast. Images reviewed wi th bone, brain and subdural windows. Images stored on PACS. All CT scanners at this facility use dose modulation, iterative reconstruction, and/or weight based d osing when appropriate to reduce radiation dose to as low as reasonably achievable (ALARA). [facility]: Dose Right [facility]: CareDose [facility]: Dose Right [facility]: Teradose 4D [facility]: Smart A[place]o RADIATION DOSE: CT Rad equipment meets quality standard of care and radiation dose reduction techniq ues were employed. CTDIvol: 53.2 mGy. DLP: 964 mGy-cm. mGy. LIMITATIONS: None. FINDINGS: VENTRICLES: Normal size and contour. CEREBRUM: No masses. No hemorrhage. No midline shift. No evidence for acute infarction. Normal gra y/white matter differentiation. No areas of low density in the white matter. CEREBELLUM: No masses. No hemorrhage. No alteration of density. No evidence for acute infarction. EXTRAAXIAL SPACES: No fluid collections. No masses. ORBITS AND GLOBE: No intra- or extraconal masses. Normal contour of globe without masses. CALVARIUM: No fracture. PARANASAL SINUSES: No fluid or mucosal thickening. SOFT TISSUES: No mass or hematoma. OTHER: No other significant finding. IMPRESSION: No acute intracranial hemorrhage, mass, or evidence of acute territorial infarct. EVIDENCE OF ACUTE STROKE: NO. COMMENT: Quality ID # [id number]: Final reports with documentation of one or more dose reduction techniques (e.g., Automated exposure control, adjustment of the mA and/or kV according to patient size, use of iterative reconstruction technique) TECHNICAL DOCUMENTATION: JOB ID: [id number] [email or web address]- All Rights Reserved Reading location - IP/workstation name: [email or web address]
[2019-06-17 19:47] VITALS: BP 169/103
== END 2019-06-17 19:47 | disposition home or self-care (01) ==
LOC: ER 16:51
DX: M62.81 Muscle weakness (generalized) (principal); R20.0 Anesthesia of skin; M79.605 Pain in left leg; F17.200 Nicotine dependence, unspecified, uncomplicated; Z88.2 Allergy status to sulfonamides; I10 Essential (primary) hypertension
CPT/HCPCS: 70450; 99283

== ENCOUNTER 2019-06-19 23:49 | Emergency (ER) | payer SELFPAY ==
[2019-06-20 00:27] LABS: ABSOLUTE EOSINOPHILS # (AUTO) 0.1 10^3/uL (0.0-0.6); ABSOLUTE LYMPHOCYTES (AUTO) 2.1 10^3/uL (0.5-4.7); ABSOLUTE MONOCYTES (AUTO) 0.5 10^3/uL (0.1-1.4); ABSOLUTE NEUT (AUTO) 5.7 10^3/uL (1.7-8.2); BASOPHILS % (AUTO) 0.3 % (0-2); EOSINOPHILS % (AUTO) 1.2 % (0-6); HEMATOCRIT 37.7 % (36.0-47.0); HEMOGLOBIN 13.7 g/dL (12.0-15.5); LYMPHOCYTES % (AUTO) 25.3 % (13-45); MEAN CORPUSCULAR HEMOGLOBIN 37.2 pg (27.0-33.4); MEAN CORPUSCULAR HGB CONC 36.4 g/dL (32.0-36.0); MEAN CORPUSCULAR VOLUME 102 fl (80-97); MONOCYTES % (AUTO) 6.4 % (3-13); PLATELET COUNT 206 10^3/uL (150-450); RED BLOOD COUNT 3.69 10^6/uL (3.72-5.28); RED CELL DISTRIBUTION WIDTH 18.2 % (11.5-14.0); SEGMENTED NEUTROPHILS % (AUTO) 66.8 % (42-78); TOTAL CELLS COUNTED % (AUTO) 100 %; WHITE BLOOD COUNT 8.5 10^3/uL (4.0-10.5)
[2019-06-20 01:28] LABS: INTERNATIONAL RATION (INR) 0.94; PROTHROMBIN TIME 12.6 SEC (11.4-15.4)
[2019-06-20 01:30] LABS: ALBUMIN 4.6 g/dL (3.5-5.0); ALKALINE PHOSPHATASE 99 U/L (38-126); ANION GAP 10 (5-19); ASPARTATE AMINO TRANSFERASE 43 U/L (14-36); BILIRUBIN,DIRECT 0.1 mg/dL (0.0-0.4); BILIRUBIN,TOTAL 1.3 mg/dL (0.2-1.3); BLOOD UREA NITROGEN 8 mg/dL (7-20); CALCIUM 9.5 mg/dL (8.4-10.2); CARBON DIOXIDE 33 mmol/L (22-30); CHLORIDE 90 mmol/L (98-107); GLUCOSE 122 mg/dL (75-110)
[2019-06-20 01:33] LABS: POTASSIUM 2.8 mmol/L (3.6-5.0)
--- NOTE | 2019-06-20 01:37 | ER Document Report ---
ED General - General Chief Complaint: Weakness Stated Complaint: TROUBLE BREATHING Time Seen by Provider: 06/20/19 01:08 Information source: Patient Notes: mira Miller RN pt presents to ed via ems w/ c/o of breathing difficulty and LUE and LLE weakness x2days. per ems pt was seen at [facility] 2 days ago for the same and was prescribed prednisone but has not yet filled the prescription. per pt the numbness and breathing difficulty worsening today and is now accompanied by chest pain, vomiting, chills, and sore throat. pt breathes e/u, able to speak in full sentences, 100% on RA. this rn to complete mends and nih HTN not on meds anxious with CP. Pt was seen by Dr Traore 3 days ago. My notes; 39-year-old black female arrives with 2-day history of having tachycardia and difficulty breathing and sore throat and vomiting and patient reports she is having weakness of her left upper extremity and dragging her left leg. She has numbness of her left lower extremity with poor computational linguist to her left hand and unable to lift her left hand against gravity. No one in the family has any multiple sclerosis or any strokes. She was seen here 2 days ago and prescribed prednisone but has not taken it. Patient denies any trauma or abuse and denies any cephalgia at this time. TRAVEL OUTSIDE OF THE [place] IN LAST 30 DAYS: No - HPI Onset: Other - 2 days ago Quality of pain: Achy Severity: Mild Associated symptoms: Hurts to breath, Nausea, Vomiting, Shortness of breath, Weakness Exacerbated by: Movement, Deep breathing Relieved by: Denies Similar symptoms previously: No Recently seen / treated by doctor: No - Related Data Allergies/Adverse Reactions: Sulfa (Sulfonamide Antibiotics) Adverse Reaction (Verified 06/20/19 00:28) Past Medical History - General Information source: Patient - Social History Smoking Status: Current Some Day Smoker Cigarette use (# per day): Yes - 1/2 ppd Chew tobacco use (# tins/day): No Smoking Education Provided: Yes Frequency of alcohol use: Occasional Drug Abuse: None Lives with: Family - Patient's sister helps with activities of daily living like getting her to shower and to the bathroom Family History: Reviewed & Not Pertinent, CAD, Malignancy Patient has homicidal ideation: No - Past Medical History Cardiac Medical History: Reports: Hx Hypertension - Untreated currently Renal/ Medical History: Denies: Hx Peritoneal Dialysis - Immunizations Hx Diphtheria, Pertussis, Tetanus Vaccination: Yes Review of Systems - Review of Systems Constitutional: See HPI, Malaise, Weakness EENT: See HPI, Throat pain Cardiovascular: No symptoms reported Respiratory: No symptoms reported Gastrointestinal: No symptoms reported Genitourinary: No symptoms reported Female Genitourinary: No symptoms reported Musculoskeletal: See HPI, Other - LLE numbness and weakness of LUE Skin: No symptoms reported Hematologic/Lymphatic: No symptoms reported Neurological/Psychological: No symptoms reported Physical Exam - Vital signs Vitals: Pulse Ox 100 06/19/19 23:50 Interpretation: Tachypneic - General General appearance: Appears well - HEENT Head: Normocephalic, Atraumatic Eyes: Normal Pupils: PERRL Course - Vital Signs Vital signs: Temp Pulse Resp BP Pulse Ox 98.9 F 87 15 131/101 H 99 06/19/19 23:52 06/20/19 00:00 06/20/19 02:00 06/20/19 00:31 06/20/19 02:00 - Laboratory Result Diagrams: 06/20/19 00:16 06/20/19 00:16 Laboratory results interpreted by me: 06/20/19 06/20/19 00:16 00:16 RBC 3.69 L MCV 102 H MCH 37.2 H MCHC 36.4 H RDW 18.2 H Sodium 133.2 L Potassium 2.8 L* Chloride 90 L Carbon Dioxide 33 H Glucose 122 H AST 43 H Critical Care Note - Critical Care Note Total time excluding time spent on procedures (mins): 90 Comments: I spoke with Talia Aguilera who is on for neurology tonight and she advised transfer. I spoke with Verónica who is the security services specialist [facility]. She will arrange for a hospitalist to talk with me as well. This occurred at [address] Pineda at 0 238 and he accepted the patient via [place] transfer center Discharge - Discharge Clinical Impression: Weakness, Numbness and tingling of left arm and leg, Hypokalemia, Smoker Condition: Fair Disposition: [facility]
--- NOTE | 2019-06-20 01:51 | RADIOLOGY REPORT (SQ) ---
CT of the head: 06/20/2019 12:48 AM CDT HISTORY: 39-year-old patient with left upper and left lower extremity weakness. COMPARISON: None available TECHNIQUE: Multiple axial contiguous images were obtained through the head without intravenous contrast administered. This exam was performed according to our departmental dose-optimization program, which includes automated exposure control, adjustment of the mA and/or KV according to the patient's size and/or use of iterative reconstruction technique. FINDINGS: The ventricles are within normal limits for size. Both orbits appear unremarkable. The mastoid air cells appear clear. There is mild mucoperiosteal thickening of the ethmoid sinuses. The calvarium is intact. No extra-axial fluid collection is seen. The gabriel-white matter differentiation is within normal limits. No midline shift or mass effect is apparent. There are no findings to suggest acute intracranial hemorrhage. IMPRESSION: No acute intracranial hemorrhage is seen. There is persistent concern for any neurologic deficit, MRI imaging with diffusion-weighted sequences should be considered.
--- NOTE | 2019-06-20 02:01 | RADIOLOGY REPORT (SQ) ---
CT CERVICAL SPINE: 06/20/2019 12:59 AM CDT TECHNIQUE: Axial contiguous images were obtained through the cervical spine without intravenous contrast. Sagittal and coronal reconstructions were also reviewed. This exam was performed according to our departmental dose-optimization program, which includes automated exposure control, adjustment of the mA and/or KV according to the patient's size and/or use of iterative reconstruction technique. COMPARISON: None available INDICATION: 39-year old patient with neck pain, left upper and lower extremity weakness. FINDINGS: The vertebral bodies appear well aligned. The vertebral body heights appear well maintained. No significant pre-vertebral soft tissue swelling is noted. No definite fracture or subluxation is noted. No significant intervertebral disc space narrowing is seen. The visualized brain parenchyma appears unremarkable. The craniocervical junction is unremarkable. IMPRESSION: There are no findings to suggest an acute fracture or subluxation within the cervical spine.
[2019-06-20] MEDS ORDERED: POTASSI CL 20 MEQ/50 ML RIDER 20 MEQ/50 ML RTUPB IV ONE (02:10)
--- NOTE | 2019-06-20 03:01 | RADIOLOGY REPORT (SQ) ---
EXAM DESCRIPTION: XR CHEST 1 VIEW COMPLETED DATE/TME: 06/20/2019 01:56 CLINICAL HISTORY: 39 years, Female, sob COMPARISON: 09/25/2014 chest NUMBER OF VIEWS: 1 TECHNIQUE: Portable chest LIMITATIONS: None. FINDINGS: Heart size is normal. Lungs are clear. No pneumothorax IMPRESSION: Negative chest copyright 2011 [employer]- All Rights Reserved
[2019-06-20] MEDS ORDERED: POTASSIUM CHLORIDE 10 MEQ TABLET.ER PO ONE (03:09)
[2019-06-20 03:13] LABS: A TYPE INFLUENZA AG NEGATIVE (NEGATIVE); B INFLUENZA AG NEGATIVE (NEGATIVE)
[2019-06-20 03:20] LABS: APPEARANCE,URINE CLOUDY; BILIRUBIN,URINE NEGATIVE (NEGATIVE); COLOR,URINE AMBER; GLUCOSE, URINE NEGATIVE (NEGATIVE); KETONES,URINE TRACE mg/dL (NEGATIVE); LEUKOCYTE ESTERASE,URINE SMALL (NEGATIVE); NITRITE,URINE NEGATIVE (NEGATIVE); PROTEIN,URINE 100 mg/dL (NEGATIVE); URINE SPECIFIC GRAVITY 1.019
[2019-06-20 03:27] LABS: URINE AMPHETAMINES SCREEN NEGATIVE; URINE BARBITURATES SCREEN NEGATIVE; URINE BENZODIAZEPINES SCREEN NEGATIVE; URINE COCAINE SCREEN NEGATIVE; URINE METHADONE SCREEN NEGATIVE; URINE PHENCYCLIDINE SCREEN NEGATIVE
[2019-06-20 03:32] LABS: URINE MARIJUANA (THC) SCREEN UNCONFIRMED POSITIVE
[2019-06-20 03:50] VITALS: BP 155/99
== END 2019-06-20 03:56 | disposition short-term general hospital (02) ==
LOC: ER 23:49
DX: R53.1 Weakness (principal); R20.0 Anesthesia of skin; E87.6 Hypokalemia; F17.200 Nicotine dependence, unspecified, uncomplicated
CPT/HCPCS: 96365; 36415; 99285; 87070; 87880; 82550; 85025; 85610; 80053; 81001; 84484; 80307; 87804; 71045; 70450; 72125; J3480

== ENCOUNTER → 2019-08-01 | Outpatient (CLI) | payer SELFPAY ==
[2019-08-01 09:57] LABS: ANION GAP 10 (5-19); BLOOD UREA NITROGEN 8 mg/dL (7-20); CALCIUM 8.8 mg/dL (8.4-10.2); CARBON DIOXIDE 26 mmol/L (22-30); CHLORIDE 96 mmol/L (98-107); GLUCOSE 95 mg/dL (75-110); POTASSIUM 3.9 mmol/L (3.6-5.0)
== END ==
LOC: OD 08:51
DX: E87.6 Hypokalemia (principal)
CPT/HCPCS: 36415; 80048

== ENCOUNTER 2019-08-13 08:51 | Emergency (ER) | payer SELFPAY ==
[2019-08-13 10:03] LABS: ABSOLUTE LYMPHOCYTES (AUTO) 0.5 10^3/uL (0.5-4.7); ABSOLUTE MONOCYTES (AUTO) 0.3 10^3/uL (0.1-1.4); BASOPHILS % (AUTO) 0.6 % (0-2); EOSINOPHILS % (AUTO) 0.1 % (0-6); HEMATOCRIT 34.6 % (36.0-47.0); HEMOGLOBIN 12.4 g/dL (12.0-15.5); LYMPHOCYTES % (AUTO) 9.2 % (13-45); MEAN CORPUSCULAR HEMOGLOBIN 34.7 pg (27.0-33.4); MEAN CORPUSCULAR HGB CONC 35.7 g/dL (32.0-36.0); MEAN CORPUSCULAR VOLUME 97 fl (80-97); MONOCYTES % (AUTO) 5.1 % (3-13); PLATELET COUNT 278 10^3/uL (150-450); RED BLOOD COUNT 3.56 10^6/uL (3.72-5.28); RED CELL DISTRIBUTION WIDTH 15.9 % (11.5-14.0); TOTAL CELLS COUNTED % (AUTO) 100 %; WHITE BLOOD COUNT 5.9 10^3/uL (4.0-10.5)
[2019-08-13 10:12] LABS: APPEARANCE,URINE CLEAR; BILIRUBIN,URINE NEGATIVE (NEGATIVE); COLOR,URINE YELLOW; GLUCOSE, URINE NEGATIVE (NEGATIVE); KETONES,URINE NEGATIVE (NEGATIVE); LEUKOCYTE ESTERASE,URINE NEGATIVE (NEGATIVE); NITRITE,URINE NEGATIVE (NEGATIVE); PROTEIN,URINE NEGATIVE (NEGATIVE); URINE SPECIFIC GRAVITY 1.013; UROBILINOGEN,URINE NEGATIVE mg/dL (<2.0)
[2019-08-13 10:29] LABS: BLOOD UREA NITROGEN 11 mg/dL (7-20); CALCIUM 9.6 mg/dL (8.4-10.2); CARBON DIOXIDE 29 mmol/L (22-30); CHLORIDE 98 mmol/L (98-107); GLUCOSE 118 mg/dL (75-110); POTASSIUM 3.3 mmol/L (3.6-5.0)
[2019-08-13 10:30] LABS: ALBUMIN 4.6 g/dL (3.5-5.0); ALKALINE PHOSPHATASE 123 U/L (38-126); ANION GAP 7 (5-19); ASPARTATE AMINO TRANSFERASE 151 U/L (14-36); BILIRUBIN,TOTAL 0.7 mg/dL (0.2-1.3); CREATINE KINASE 159 U/L (30-135); TOTAL PROTEIN 8.2 g/dL (6.3-8.2)
[2019-08-13] MEDS ORDERED: NORMAL SALINE 1000 ML 1,000 ML IV ONE (10:33)
[2019-08-13] MEDS ORDERED: ONDANSETRON HCL INJ/PF 4 MG/2 ML SDV IV ONE (10:33)
--- NOTE | 2019-08-13 10:36 | EKG REPORT ---
SEVERITY:- ABNORMAL ECG - SINUS RHYTHM FIRST DEGREE AV BLOCK PROBABLE LEFT ATRIAL ABNORMALITY : Confirmed by: Muriel Galarza 13-Aug-2019 10:35:34
[2019-08-13 10:41] LABS: CREATINE KINASE MB 2.09 ng/mL (<4.55); TROPONIN I < 0.012 ng/mL
[2019-08-13] MEDS ORDERED: MAGNESIUM SULFATE/D5W 1 GM/100 ML RTUPB IV ONE (10:57)
[2019-08-13] MEDS ORDERED: POTASSIUM CHLORIDE 10 MEQ TABLET.ER PO ONE (10:57)
[2019-08-13] MEDS ORDERED: MECLIZINE HCL 25 MG TABLET PO ONE (10:58)
--- NOTE | 2019-08-13 11:14 | RADIOLOGY REPORT (SQ) ---
EXAM DESCRIPTION: CHEST SINGLE VIEW IMAGES COMPLETED DATE/TIME: 08/13/2019 11:05 am REASON FOR STUDY: epig pain, dizziness COMPARISON: AP view of the chest from 06/20/2019. EXAM PARAMETERS: NUMBER OF VIEWS: One view. TECHNIQUE: An AP view of the chest was obtained. RADIATION DOSE: NA LIMITATIONS: None. FINDINGS: LUNGS AND PLEURA: No consolidation, pleural effusion or pneumothorax. MEDIASTINUM AND HILAR STRUCTURES: No mediastinal or hilar contour abnormality. HEART AND VASCULAR STRUCTURES: The cardiac silhouette and pulmonary vasculature are within normal teague its. BONES: No acute findings. HARDWARE: None in the chest. OTHER: No other finding. IMPRESSION: No acute cardiopulmonary process. TECHNICAL DOCUMENTATION: JOB ID: [id number] 2010 [employer]- All Rights Reserved Reading location - IP/workstation name: [email or web address]
[2019-08-13] MEDS ORDERED: PROCHLORPERAZINE EDISYLATE INJ 10 MG/2 ML VIAL IV ONE (12:13)
--- NOTE | 2019-08-13 12:14 | ER Document Report ---
ED Dizziness/Weakness - General Chief Complaint: Dizziness Stated Complaint: NAUSEA,LIGHTHEADED Time Seen by Provider: 08/13/19 10:08 Primary Care Provider: [facility] [Provider Group] - Follow up as needed Mode of Arrival: Ambulatory Information source: Patient Notes: Patient presents stating that she has felt dizzy with position changes. Patient states when she stands up the room spins with a rotational movement. Patient states that she has had nausea with vomiting x4 episodes. Patient denies any diarrhea. Patient does complain of epigastric tenderness that she attributes to vomiting. Patient denies any cough or congestion symptoms. TRAVEL OUTSIDE OF THE [place] IN LAST 30 DAYS: No - HPI Patient complains to provider of: Vertigo Onset: This morning Onset/Duration: Waxing and waning Quality of pain: Achy Pain Level: 2 Context: Vertigo Associated symptoms: Dizzy, Nausea, Vomiting. denies: Chest pain, Diarrhea, Fainted, Headache Exacerbated by: Change in position Baseline gait: Walks w/o assistance - Related Data Allergies/Adverse Reactions: Sulfa (Sulfonamide Antibiotics) Adverse Reaction (Verified 06/20/19 00:28) Home Medications: Lisinopril. Lasix Past Medical History - General Information source: Patient - Social History Smoking Status: Current Every Day Smoker Frequency of alcohol use: Occasional Drug Abuse: None Occupation: Foodservice Family History: Reviewed & Not Pertinent, CAD, Malignancy Patient has homicidal ideation: No - Past Medical History Cardiac Medical History: Reports: Hx Atrial Fibrillation - currently wearing heart monitor 07/2019, Hx Congestive Heart Failure, Hx Hypercholesterolemia, Hx Hypertension - Untreated currently Neurological Medical History: Reports: Hx Cerebrovascular Accident Renal/ Medical History: Denies: Hx Peritoneal Dialysis Surgical Hx: Negative - Immunizations Hx Diphtheria, Pertussis, Tetanus Vaccination: Yes Review of Systems - Review of Systems Constitutional: No symptoms reported. denies: Chills, Fever EENT: No symptoms reported. denies: Nose congestion, Nose discharge Cardiovascular: Dizziness. denies: Chest pain Respiratory: No symptoms reported. denies: Cough, Short of breath Gastrointestinal: Abdominal pain, Nausea, Vomiting. denies: Diarrhea Genitourinary: No symptoms reported. denies: Dysuria, Flank pain Female Genitourinary: No symptoms reported Musculoskeletal: No symptoms reported. denies: Back pain Skin: No symptoms reported Hematologic/Lymphatic: No symptoms reported Neurological/Psychological: No symptoms reported. denies: Confusion, Weakness Physical Exam - Vital signs Vitals: Temp Pulse Resp BP Pulse Ox 98.1 F 92 17 138/83 H 96 08/13/19 08:58 08/13/19 08:58 08/13/19 08:58 08/13/19 08:58 08/13/19 08:58 - General General appearance: Appears well, Alert In distress: None - HEENT Head: Normocephalic, Atraumatic Eyes: Other - Lateral nystagmus Extraocular movements intact: Yes Eyelashes: Normal Pupils: PERRL Ears: Normal External canal: Normal Tympanic membrane: Normal Nasal: Normal Mouth/Lips: Normal Mucous membranes: Normal Pharynx: Normal Neck: Normal, Supple. No: Lymphadenopathy - Respiratory Respiratory status: No respiratory distress Chest status: Nontender Breath sounds: Normal. No: Rales, Rhonchi, Stridor, Wheezing Chest palpation: Normal - Cardiovascular Rhythm: Regular Heart sounds: S1 appreciated, S2 appreciated - Abdominal Inspection: Normal Distension: No distension Bowel sounds: Normal Tenderness: Tender - Mild epigastric tenderness. No: Guarding Organomegaly: No organomegaly - Back Back: Normal, Nontender. No: CVA tenderness, Vertebra tenderness - Extremities General upper extremity: Normal inspection, Normal strength General lower extremity: Normal inspection, Normal strength - Neurological Neuro grossly intact: Yes Cognition: Normal Combs Coma Scale Eye Opening: Spontaneous Combs Coma Scale Verbal: Oriented Zoila Coma Scale Motor: Obeys Commands Combs Coma Scale Total: 15 Speech: Normal. No: Dysarthria Cranial nerves: Normal Cerebellar coordination: Normal Motor strength normal: LUE, RUE, LLE, RLE - Psychological Associated symptoms: Normal affect, Normal mood - Skin Skin Temperature: Warm Skin Moisture: Dry Skin Color: Normal Course - Re-evaluation Re-evalutation: 08/13/19 12:13 Patient ambulatory to the bathroom, patient states that she does still have some mild lightheadedness with position changes only. Patient states she vomited about 20 minutes ago. Will give additional antiemetic at this time. 08/13/19 13:57 Patient reports that nausea is resolved as well as lightheadedness although she does complain of the mild tenderness to the epigastric area that she attributes to the vomiting. Will give GI cocktail at this time. 08/13/19 13:59 Patient with resolved vertiginous symptoms. Patient mildly hypokalemic and hypomagnesemic, electrolytes were replaced while here. Patient symptoms did improve after use of antiemetic and meclizine. Patient with mild epigastric tenderness that she attributes to her vomiting episodes. Patient presents with abdominal pain without signs of peritonitis or other life-threatening or serious etiology. The patient presents with resolved dizziness without signs of OFFICE COORDINATOR bleed, stroke, infection, or other serious etiology. The patient is neurologically intact. Given the extremely low risk of these diagnoses further testing and evaluation for these possibilities does not appear to be indicated at this time. The patient has been instructed to return if the symptoms worsen or change in any way. - Vital Signs Vital signs: Temp Pulse Resp BP Pulse Ox 98.0 F 82 18 138/74 H 98 08/13/19 15:06 08/13/19 15:06 08/13/19 15:06 08/13/19 15:06 08/13/19 15:06 - Laboratory Result Diagrams: 08/13/19 09:39 08/13/19 09:39 Laboratory results interpreted by me: 08/13/19 08/13/19 08/13/19 09:39 09:39 09:39 RBC 3.56 L Hct 34.6 L MCH 34.7 H RDW 15.9 H Lymph % (Auto) 9.2 L Seg Neutrophils % 85.0 H Sodium 134.4 L Potassium 3.3 L Creatinine 0.46 L Glucose 118 H Magnesium AST 151 H ALT 76 H Creatine Kinase 159 H Urine Blood SMALL H 08/13/19 09:39 RBC Hct MCH RDW Lymph % (Auto) Seg Neutrophils % Sodium Potassium Creatinine Glucose Magnesium 1.4 L AST ALT Creatine Kinase Urine Blood 08/13/19 13:58 Labs- All tests 24 hr 08/13/19 08/13/19 08/13/19 09:39 09:39 09:39 WBC 5.9 RBC 3.56 L Hgb 12.4 Hct 34.6 L MCV 97 MCH 34.7 H MCHC 35.7 RDW 15.9 H Plt Count 278 Lymph % (Auto) 9.2 L [place] % (Auto) 5.1 Eos % (Auto) 0.1 Baso % (Auto) 0.6 Absolute Neuts (auto) 5.0 Absolute Lymphs (auto) 0.5 Absolute Monos (auto) 0.3 Absolute Eos (auto) 0.0 Absolute Basos (auto) 0.0 Seg Neutrophils % 85.0 H Sodium 134.4 L Potassium 3.3 L Chloride 98 Carbon Dioxide 29 Anion Gap 7 BUN 11 Creatinine 0.46 L Est GFR ( Amer) > 60 Est GFR (MDRD) Non-Af > 60 Glucose 118 H Calcium 9.6 Magnesium Total Bilirubin 0.7 Direct Bilirubin 0.0 Neonat Total Bilirubin Not Reportable Neonat Direct Bilirubin Not Reportable Neonat Indirect Bili Not Reportable AST 151 H ALT 76 H Alkaline Phosphatase 123 Creatine Kinase 159 H CK-MB (CK-2) 2.09 Troponin I < 0.012 Total Protein 8.2 Albumin 4.6 Lipase Serum HCG, Qual Urine Color Urine Appearance Urine pH Ur Specific [place] Urine Protein Urine Glucose (UA) Urine Ketones Urine Blood Urine Nitrite Urine Bilirubin Urine Urobilinogen Ur Leukocyte Esterase Urine WBC (Auto) Urine RBC (Auto) U Hyaline Cast (Auto) Squamous Epi Cells Auto Urine Mucus (Auto) Urine Ascorbic Acid 08/13/19 08/13/19 08/13/19 09:39 09:39 09:39 WBC RBC Hgb Hct MCV MCH MCHC RDW Plt Count Lymph % (Auto) [place] % (Auto) Eos % (Auto) Baso % (Auto) Absolute Neuts (auto) Absolute Lymphs (auto) Absolute Monos (auto) Absolute Eos (auto) Absolute Basos (auto) Seg Neutrophils % Sodium Potassium Chloride Carbon Dioxide Anion Gap BUN Creatinine Est GFR ( Amer) Est GFR (MDRD) Non-Af Glucose Calcium Magnesium 1.4 L Total Bilirubin Direct Bilirubin Neonat Total Bilirubin Neonat Direct Bilirubin Neonat Indirect Bili AST ALT Alkaline Phosphatase Creatine Kinase CK-MB (CK-2) Troponin I Total Protein Albumin Lipase 208.4 Serum HCG, Qual NEGATIVE Urine Color YELLOW Urine Appearance CLEAR Urine pH 5.0 Ur Specific [place] 1.013 Urine Protein NEGATIVE Urine Glucose (UA) NEGATIVE Urine Ketones NEGATIVE Urine Blood SMALL H Urine Nitrite NEGATIVE Urine Bilirubin NEGATIVE Urine Urobilinogen NEGATIVE Ur Leukocyte Esterase NEGATIVE Urine WBC (Auto) 1 Urine RBC (Auto) 0 U Hyaline Cast (Auto) 3 Squamous Epi Cells Auto 2 Urine Mucus (Auto) RARE Urine Ascorbic Acid NEGATIVE 08/13/19 12:35 WBC RBC Hgb Hct MCV MCH MCHC RDW Plt Count Lymph % (Auto) [place] % (Auto) Eos % (Auto) Baso % (Auto) Absolute Neuts (auto) Absolute Lymphs (auto) Absolute Monos (auto) Absolute Eos (auto) Absolute Basos (auto) Seg Neutrophils % Sodium Potassium Chloride Carbon Dioxide Anion Gap BUN Creatinine Est GFR ( Amer) Est GFR (MDRD) Non-Af Glucose Calcium Magnesium Total Bilirubin Direct Bilirubin Neonat Total Bilirubin Neonat Direct Bilirubin Neonat Indirect Bili AST ALT Alkaline Phosphatase Creatine Kinase CK-MB (CK-2) Troponin I < 0.012 Total Protein Albumin Lipase Serum HCG, Qual Urine Color Urine Appearance Urine pH Ur Specific [place] Urine Protein Urine Glucose (UA) Urine Ketones Urine Blood Urine Nitrite Urine Bilirubin Urine Urobilinogen Ur Leukocyte Esterase Urine WBC (Auto) Urine RBC (Auto) U Hyaline Cast (Auto) Squamous Epi Cells Auto Urine Mucus (Auto) Urine Ascorbic Acid - Diagnostic Test Radiology reviewed: Reports reviewed Discharge - Discharge Clinical Impression: Vertigo Nausea and vomiting Qualifiers: Vomiting type: unspecified Vomiting Intractability: non-intractable Qualified Code(s): R11.2 - Nausea with vomiting, unspecified Gastritis Qualifiers: Gastritis type: unspecified gastritis Chronicity: acute Gastritis bleeding: without bleeding Qualified Code(s): K29.00 - Acute gastritis without bleeding Condition: Stable Disposition: HOME, SELF-CARE Instructions: Antinausea Medication ([facility]), Gastritis ([facility]), Intravenous (IV) Fluids ([facility]), Meclizine ([facility]), Vertigo ([facility]), Vomiting ([facility]) Additional Instructions: Return immediately for any new or worsening symptoms Followup with your primary care provider, call tomorrow to make a followup appointment Increase foods in diet rich in potassium Prescriptions: Meclizine HCl [Antivert 25 mg Tablet] 25 mg PO ASDIR PRN #12 tablet PRN Reason: Famotidine [Pepcid 20 mg Tablet] 20 mg PO BID #12 tablet Ondansetron [Zofran Odt 4 mg Tablet] 1 tab PO Q6H #15 tab.rapdis Forms: Return to Work Referrals: [facility] [Provider Group] - Follow up as needed
[2019-08-13] MEDS ORDERED: MAG HYDROX/AL HYDROX/SIMETH SUSP 30 ML UDCUP PO ONE (13:54)
[2019-08-13] MEDS ORDERED: LIDOCAINE 2% VISCOUS SOLN 15 ML UDCUP PO ONE (13:54)
[2019-08-13 15:07] VITALS: BP 138/74
== END 2019-08-13 15:06 | disposition home or self-care (01) ==
LOC: ER 08:51
DX: R42 Dizziness and giddiness (principal); K29.00 Acute gastritis without bleeding; I11.0 Hypertensive heart disease with heart failure; I50.9 Heart failure, unspecified; I44.0 Atrioventricular block, first degree; R11.2 Nausea with vomiting, unspecified; R10.816 Epigastric abdominal tenderness; F17.200 Nicotine dependence, unspecified, uncomplicated; Z79.899 Other long term (current) drug therapy
CPT/HCPCS: 93005; 99284; 96361; 96375; 96365; 36415; 82553; 82550; 83690; 83735; 84703; 85025; 80053; 81001; 84484; 71045; 93010; J3490; J3475; J0780; J2405; J7030

== ENCOUNTER 2019-09-12 07:45 | Emergency (ER) | payer SELFPAY ==
--- NOTE | 2019-09-12 08:51 | ER Document Report ---
ED General - General Chief Complaint: Pain All Over Stated Complaint: PAIN ALL OVER/DEHYDRATION Time Seen by Provider: 09/12/19 08:28 Primary Care Provider: MARIAM BAER MD [Primary Care Provider] - Follow up as needed Notes: Patient presents with weakness and leg cramping onset this morning at 4 AM when she woke up to take her medicines and she stretched. She takes Lipitor potassium and a diuretic but she does not remember. She is felt nauseous for 2 days has not been drinking much and the air conditioner is broken at work. She has dark urine. No chest pain or shortness of breath. TRAVEL OUTSIDE OF THE [place] IN LAST 30 DAYS: No - Related Data Allergies/Adverse Reactions: Sulfa (Sulfonamide Antibiotics) Adverse Reaction (Verified 09/12/19 08:24) Past Medical History - General Information source: Patient - Social History Smoking Status: Current Some Day Smoker Chew tobacco use (# tins/day): No Frequency of alcohol use: None Drug Abuse: None Family History: Reviewed & Not Pertinent, CAD, Malignancy - Past Medical History Cardiac Medical History: Reports: Hx Atrial Fibrillation - currently wearing heart monitor 07/2019, Hx Congestive Heart Failure, Hx Hypercholesterolemia, Hx Hypertension - Untreated currently Neurological Medical History: Reports: Hx Cerebrovascular Accident Renal/ Medical History: Denies: Hx Peritoneal Dialysis - Immunizations Hx Diphtheria, Pertussis, Tetanus Vaccination: Yes Review of Systems - Review of Systems Notes: REVIEW OF SYSTEMS GEN: Denies ENT: Denies sore throat, nasal discharge, ear pain EYES: Denies blurry vision, eye pain, discharge CV: Denies chest pain, palpitations, edema RESP: Denies cough, shortness of breath, wheezing GI: Denies abdominal pain, nausea, vomiting, diarrhea MSK: Cramps SKIN: Denies rash, skin lesions LYMPH: Denies swollen glands/lymph nodes NEURO: Denies headache, focal weakness or numbness, dizziness PSYCH: Denies depression, suicidal or homicidal ideation PHYSICAL EXAMINATION General: No acute distress, well-nourished Head: Atraumatic, normocephalic ENT: Mouth normal, oropharynx moist, no exudates or tonsillar enlargement Eyes: Conjunctiva normal, pupils equal, lids normal Neck: No JVD, supple, no guarding CVS: Normal rate, regular rhythm, no murmurs Resp: No resp distress, equal and normal breath sounds bilaterally GI: Nondistended, soft, no tenderness to palpation, no rebound or guarding Ext: No deformities, no edema, normal range of motion in upper and lower ext Back: No CVA or midline TTP Skin: No rash, warm Lymphatic: No lymphadeopathy noted Neuro: Awake, alert. Face symmetric. GCS 15. Physical Exam - Vital signs Vitals: Temp Pulse Resp BP Pulse Ox 99.0 F 101 H 19 105/67 100 09/12/19 07:58 09/12/19 07:58 09/12/19 07:58 09/12/19 07:58 09/12/19 07:58 Course - Re-evaluation Re-evalutation: 09/12/19 15:15 Presents leg cramping on the setting of potassium use and diuretic use also not drinking too much he seems dehydrated She is given fluids. She had labs done which showed a very mild hypokalemia. This was repleted orally. EKG stable She is stable for discharge home to resume all meds and keep hydrated localized resolved cramping argues against rhabdo I have discussed with the patient there likely diagnosis, aftercare plan, follow-up plans and my usual and customary return precautions. They verbalized understanding of this. - Vital Signs Vital signs: Temp Pulse Resp BP Pulse Ox 98.4 F 96 16 130/83 H 99 09/12/19 11:09 09/12/19 11:08 09/12/19 11:08 09/12/19 11:08 09/12/19 11:08 - Laboratory Result Diagrams: 09/12/19 09:39 09/12/19 09:39 Laboratory results interpreted by me: 09/12/19 09/12/19 09:39 09:39 RDW 14.4 H Seg Neutrophils % 79.2 H Sodium 131.7 L Potassium 3.5 L BUN < 2 L Creatinine 0.50 L Glucose 131 H Magnesium 1.5 L - EKG Interpretation by Ne EKG shows normal: Sinus rhythm Rate: Normal Rhythm: NSR Discharge - Discharge Clinical Impression: Leg cramps Condition: Good Disposition: HOME, SELF-CARE Instructions: Leg Cramps ([facility]) Additional Instructions: Follow-up with your regular doctor for repeat potassium check in 3-5 days. Forms: Return to Work Referrals: MARIAM BAER MD [Primary Care Provider] - Follow up as needed
[2019-09-12 09:53] LABS: ABSOLUTE MONOCYTES (AUTO) 0.4 10^3/uL (0.1-1.4); ABSOLUTE NEUT (AUTO) 5.5 10^3/uL (1.7-8.2); BASOPHILS % (AUTO) 0.4 % (0-2); EOSINOPHILS % (AUTO) 0.3 % (0-6); HEMATOCRIT 36.6 % (36.0-47.0); HEMOGLOBIN 12.6 g/dL (12.0-15.5); LYMPHOCYTES % (AUTO) 14.8 % (13-45); MEAN CORPUSCULAR HEMOGLOBIN 33.4 pg (27.0-33.4); MEAN CORPUSCULAR HGB CONC 34.5 g/dL (32.0-36.0); MEAN CORPUSCULAR VOLUME 97 fl (80-97); MONOCYTES % (AUTO) 5.3 % (3-13); PLATELET COUNT 182 10^3/uL (150-450); RED BLOOD COUNT 3.79 10^6/uL (3.72-5.28); RED CELL DISTRIBUTION WIDTH 14.4 % (11.5-14.0); SEGMENTED NEUTROPHILS % (AUTO) 79.2 % (42-78); TOTAL CELLS COUNTED % (AUTO) 100 %; WHITE BLOOD COUNT 6.9 10^3/uL (4.0-10.5)
[2019-09-12 10:11] LABS: ANION GAP 6 (5-19); CALCIUM 8.8 mg/dL (8.4-10.2); CARBON DIOXIDE 25 mmol/L (22-30); CHLORIDE 101 mmol/L (98-107); GLUCOSE 131 mg/dL (75-110); POTASSIUM 3.5 mmol/L (3.6-5.0)
[2019-09-12 10:12] LABS: BLOOD UREA NITROGEN < 2 mg/dL (7-20)
[2019-09-12] MEDS ORDERED: POTASSIUM CHLORIDE 10 MEQ TABLET.ER PO ONE (10:48)
[2019-09-12 11:09] VITALS: BP 130/83
--- NOTE | 2019-09-13 01:16 | EKG REPORT ---
SEVERITY:- ABNORMAL ECG - SINUS RHYTHM FIRST DEGREE AV BLOCK : Confirmed by: Muriel Galarza 13-Sep-2019 01:15:14
== END 2019-09-12 11:09 | disposition home or self-care (01) ==
LOC: ER 07:45
DX: R25.2 Cramp and spasm (principal); M79.10 Myalgia, unspecified site; E86.0 Dehydration; R11.0 Nausea; F17.200 Nicotine dependence, unspecified, uncomplicated; I48.91 Unspecified atrial fibrillation; I50.9 Heart failure, unspecified; I11.0 Hypertensive heart disease with heart failure; Z86.73 Personal history of transient ischemic attack (TIA), and cerebral infarction without residual deficits
CPT/HCPCS: 36415; 80048; 83735; 85025; 93005; 93010; 99283

== ENCOUNTER 2020-01-17 09:56 | Emergency (ER) | payer SELFPAY ==
[2020-01-17] MEDS ORDERED: ONDANSETRON 4 MG TAB.RAPDIS PO ONE (10:17)
--- NOTE | 2020-01-17 10:19 | ER Document Report ---
ED Medical Screen (RME) - General Chief Complaint: Vomiting/Diarrhea Stated Complaint: VOMITING,DIARRHEA Time Seen by Provider: 01/17/20 10:12 Primary Care Provider: MARIAM BAER MD [Primary Care Provider] - Follow up as needed Mode of Arrival: Wheelchair Information source: Patient Notes: 40-year-old female presented to ED for complaint of nausea vomiting hands and feet feeling no weakness. She took her blood pressure this morning it was 80s over 50s we took it here and is 83/51. She states she is afraid that her potassium is down because she cannot keep down all the foods that she is supposed to eat for her potassium. States she has not been able to keep down her amlodipine or her Lipitor either. She states she does smoke 5 cigarettes a day she does have high blood pressure high cholesterol and she had a stroke in her 20s. Patient is alert oriented respirations regular and unlabored answering questions appropriately at this time. We will get her in her room and get her seen by a provider. TRAVEL OUTSIDE OF THE [place] IN LAST 30 DAYS: No - Related Data Allergies/Adverse Reactions: Sulfa (Sulfonamide Antibiotics) Adverse Reaction (Verified 09/12/19 08:24) Home Medications: bp amlodipine. potassium. lipitor Past Medical History - Social History Chew tobacco use (# tins/day): No Frequency of alcohol use: None Drug Abuse: None - Past Medical History Cardiac Medical History: Reports: Hx Atrial Fibrillation - currently wearing heart monitor 07/2019, Hx Congestive Heart Failure, Hx Hypercholesterolemia, Hx Hypertension - Untreated currently Neurological Medical History: Reports: Hx Cerebrovascular Accident Renal/ Medical History: Denies: Hx Peritoneal Dialysis - Immunizations Hx Diphtheria, Pertussis, Tetanus Vaccination: Yes Physical Exam - Vital signs Vitals: Temp Pulse Resp BP Pulse Ox 97.9 F 98 16 83/51 L 100 01/17/20 10:04 01/17/20 10:04 01/17/20 10:04 01/17/20 10:04 01/17/20 10:04 Course - Vital Signs Vital signs: Temp Pulse Resp BP Pulse Ox 97.9 F 98 16 83/51 L 100 01/17/20 10:12 01/17/20 10:04 01/17/20 10:04 01/17/20 10:04 01/17/20 10:04 Doctor's Discharge - Discharge Referrals: MARIAM BAER MD [Primary Care Provider] - Follow up as needed
[2020-01-17] MEDS: NORMAL SALINE 1000 ML 1,000 ML IV PRN ×2 (10:46→13:50)
--- NOTE | 2020-01-17 11:03 | RADIOLOGY REPORT (SQ) ---
EXAM DESCRIPTION: CHEST SINGLE VIEW IMAGES COMPLETED DATE/TIME: 01/17/2020 10:49 am REASON FOR STUDY: nausea vomiting weak COMPARISON: 08/13/2019 EXAM PARAMETERS: NUMBER OF VIEWS: One view. TECHNIQUE: Single frontal radiographic view of the chest acquired. RADIATION DOSE: NA LIMITATIONS: None. FINDINGS: LUNGS AND PLEURA: No opacities, masses or pneumothorax. No pleural effusion. MEDIASTINUM AND HILAR STRUCTURES: No masses. Contour normal. HEART AND VASCULAR STRUCTURES: Heart normal in size. Normal vasculature. BONES: No acute findings. HARDWARE: None in the chest. OTHER: No other significant finding. IMPRESSION: NO ACUTE RADIOGRAPHIC FINDING IN THE CHEST. TECHNICAL DOCUMENTATION: JOB ID: [id number] 2010 [employer]- All Rights Reserved Reading location - IP/workstation name: [email or web address]
[2020-01-17 11:14] LABS: ABSOLUTE LYMPHOCYTES (AUTO) 1.1 10^3/uL (0.5-4.7); ABSOLUTE MONOCYTES (AUTO) 0.3 10^3/uL (0.1-1.4); ABSOLUTE NEUT (AUTO) 4.9 10^3/uL (1.7-8.2); BASOPHILS % (AUTO) 0.3 % (0-2); EOSINOPHILS % (AUTO) 0.6 % (0-6); HEMATOCRIT 35.4 % (36.0-47.0); HEMOGLOBIN 12.1 g/dL (12.0-15.5); LYMPHOCYTES % (AUTO) 17.7 % (13-45); MEAN CORPUSCULAR HEMOGLOBIN 35.3 pg (27.0-33.4); MEAN CORPUSCULAR HGB CONC 34.2 g/dL (32.0-36.0); MEAN CORPUSCULAR VOLUME 103 fl (80-97); MONOCYTES % (AUTO) 4.3 % (3-13); PLATELET COUNT 175 10^3/uL (150-450); RED BLOOD COUNT 3.43 10^6/uL (3.72-5.28); RED CELL DISTRIBUTION WIDTH 21.4 % (11.5-14.0); SEGMENTED NEUTROPHILS % (AUTO) 77.1 % (42-78); TOTAL CELLS COUNTED % (AUTO) 100 %; WHITE BLOOD COUNT 6.4 10^3/uL (4.0-10.5)
--- NOTE | 2020-01-17 11:18 | EKG REPORT ---
SEVERITY:- ABNORMAL ECG - SINUS RHYTHM FIRST DEGREE AV BLOCK LEFT VENTRICULAR HYPERTROPHY ANTERIOR Q WAVES, POSSIBLY DUE TO LVH : Confirmed by: Jared Huerta MD 17-Jan-2020 11:17:08
--- NOTE | 2020-01-17 11:27 | ER Document Report ---
ED General - General Chief Complaint: Nausea/Vomiting Stated Complaint: VOMITING,DIARRHEA Time Seen by Provider: 01/17/20 10:12 Primary Care Provider: MARIAM BARE MD [Primary Care Provider] - Follow up as needed Mode of Arrival: Wheelchair TRAVEL OUTSIDE OF THE [place] IN LAST 30 DAYS: No - HPI Notes: Patient is a 40-year-old female with a past medical history of hypertension and previous stroke without residual deficits presents with nausea and vomiting. Patient states she did not feel well yesterday while cooking. She did not have any dinner or food yesterday. She states she began having vomiting. Vomiting was clear liquid. There was no bile. She had slight diarrhea without any blood in it. Patient states she has pain in her upper abdomen. It feels muscular. She denies any fevers or chills. No Covid exposure. She has a headache and is slightly lightheaded. She has not taken any of her medicines or her potassium pills. She states the last time she ate was the day before yesterday - Related Data Allergies/Adverse Reactions: Sulfa (Sulfonamide Antibiotics) Adverse Reaction (Verified 01/17/20 10:17) Home Medications: bp amlodipine. potassium. lipitor Past Medical History - General Information source: Patient - Social History Smoking Status: Current Every Day Smoker Chew tobacco use (# tins/day): No Frequency of alcohol use: None Drug Abuse: None Family History: Reviewed & Not Pertinent, CAD, Malignancy Patient has homicidal ideation: No - Past Medical History Cardiac Medical History: Reports: Hx Atrial Fibrillation - currently wearing heart monitor 07/2019, Hx Congestive Heart Failure, Hx Hypercholesterolemia, Hx Hypertension - Untreated currently Neurological Medical History: Reports: Hx Cerebrovascular Accident Renal/ Medical History: Denies: Hx Peritoneal Dialysis - Immunizations Hx Diphtheria, Pertussis, Tetanus Vaccination: Yes Review of Systems - Review of Systems Notes: CONSTITUTIONAL: No fever, fatigue or weight loss. SKIN: No rash. HENT: No congestion, ear pain, or sore throat. CARDIOVASCULAR: No chest pain or edema. RESPIRATORY: No cough, shortness of breath, congestion, or wheezing. GASTROINTESTINAL: Positive for abdominal pain, nausea, vomiting, diarrhea. GENITOURINARY: No dysuria. MUSCULOSKELETAL: No joint pain or swelling. NEUROLOGIC: No seizures. No headache, focal weakness or sensory changes. HEMATOLOGIC: No unusual bruising or bleeding. PSYCHIATRIC: No depression or anxiety. Physical Exam - Vital signs Vitals: Temp Pulse Resp BP Pulse Ox 97.9 F 98 16 83/51 L 100 01/17/20 10:04 01/17/20 10:04 01/17/20 10:04 01/17/20 10:04 01/17/20 10:04 - General General appearance: Appears well Notes: VITAL SIGNS: Within normal limits. GENERAL: No acute distress, non-toxic appearance. HEAD: Normal with no signs of head trauma. EYES: EOMI, conjunctiva normal, no discharge. EARS: Hearing grossly intact. NOSE: Normal. NECK: Normal range of motion, no tenderness CHEST: Clear breath sounds bilaterally. No wheezes, rales, or rhonchi. CARDIAC: Regular rate and rhythm. S1 and S2, without murmurs, gallops, or rubs. VASCULAR: No Edema. ABDOMEN: Minmal discomfort to palpation of upper abdomen. GASTROINTESTINAL: Bowel sounds normal GENITOURINARY: Normal, No tenderness MUSCULOSKELETAL: Good range of motion of all major joints. Extremities without clubbing, cyanosis or edema. NEUROLOGICAL: Alert and oriented x 3. No focal sensory or strength deficits. Speech normal. Follows commands appropriately. PSYCHIATRIC: Normal Affect, judgement and mood. SKIN: Normal appearance with no rashes or lesions. Course - Re-evaluation Re-evalutation: 01/17/20 11:27 Patient was initially hypotensive in triage. Her blood pressure improved without fluids. She will receive fluid boluses and Zofran. Lab work will be ob tained. - Vital Signs Vital signs: Temp Pulse Resp BP Pulse Ox 97.9 F 98 19 142/97 H 100 01/17/20 10:12 01/17/20 10:04 01/17/20 16:02 01/17/20 16:02 01/17/20 16:02 - Laboratory Result Diagrams: 01/17/20 10:50 01/17/20 10:50 Laboratory results interpreted by me: 01/17/20 01/17/20 01/17/20 10:50 10:50 10:50 RBC 3.43 L Hct 35.4 L MCV 103 H MCH 35.3 H RDW 21.4 H Potassium 3.3 L Chloride 97 L Carbon Dioxide 31 H BUN 6 L Glucose 149 H Magnesium 1.3 L AST 45 H Total Protein 8.7 H Serum HCG, Qual POSITIVE H Urine Protein Urine HCG, Qual 01/17/20 01/17/20 11:40 11:40 RBC Hct MCV MCH RDW Potassium Chloride Carbon Dioxide BUN Glucose Magnesium AST Total Protein Serum HCG, Qual Urine Protein 100 H Urine HCG, Qual POSITIVE H - EKG Interpretation by Me EKG shows normal: Sinus rhythm Rate: Normal Heart block present: 1st Degree When compared to previous EKG there are: No significant change Additional EKG results interpreted by me: 01/17/20 11:29 Sinus rhythm at a rate of 73. First-degree AV block. QTc 476. No significant change from previous. Discharge - Discharge Clinical Impression: Vomiting and diarrhea, Positive test Condition: Stable Disposition: HOME, SELF-CARE Instructions: COVID-19 Guidance for Persons Under Investigation, Vomiting ([facility]) Additional Instructions: Your work-up today is reassuring. Please make sure you are staying hydrated. Please follow-up with JUNIOR ANALYST and your family doctor. You will need to have your beta hCG levels rechecked. Please return to the ER for any fever, abdominal pain, vaginal bleeding, any other concerning symptoms. You were tested for COVID-19. Please self isolate until you are called with a negative result. Prescriptions: Metoclopramide HCl [Reglan] 5 mg PO Q6H PRN #10 tablet PRN Reason: Referrals: MARIAM BAER MD [Primary Care Provider] - Follow up as needed JERZY WEISS MD [ACTIVE STAFF] - Follow up in 3-5 days
[2020-01-17 11:32] LABS: ALBUMIN 4.6 g/dL (3.5-5.0); ALKALINE PHOSPHATASE 88 U/L (38-126); ANION GAP 9 (5-19); ASPARTATE AMINO TRANSFERASE 45 U/L (14-36); BILIRUBIN,DIRECT 0.2 mg/dL (0.0-0.4); BLOOD UREA NITROGEN 6 mg/dL (7-20); CALCIUM 9.1 mg/dL (8.4-10.2); CARBON DIOXIDE 31 mmol/L (22-30); CHLORIDE 97 mmol/L (98-107); GLUCOSE 149 mg/dL (75-110); PHOSPHORUS 3.8 mg/dL (2.5-4.5); POTASSIUM 3.3 mmol/L (3.6-5.0); TOTAL PROTEIN 8.7 g/dL (6.3-8.2)
[2020-01-17 12:05] LABS: A TYPE INFLUENZA AG NEGATIVE (NEGATIVE); B INFLUENZA AG NEGATIVE (NEGATIVE)
[2020-01-17] MEDS ORDERED: POTASSIUM CHLORIDE 10 MEQ TABLET.ER PO ONE (13:01)
[2020-01-17] MEDS ORDERED: MAGNESIUM SULFATE/D5W 1 GM/100 ML RTUPB IV SCH (13:15)
[2020-01-17] MEDS ORDERED: ACETAMINOPHEN 325 MG TABLET ONE (13:52)
[2020-01-17] MEDS ORDERED: ACETAMINOPHEN 325 MG TABLET PO ONE (14:02)
[2020-01-17] MEDS ORDERED: MAGNESIUM OXIDE 400 MG TABLET PO ONE (14:57)
[2020-01-17 15:46] LABS: APPEARANCE,URINE SLIGHTLY-CLOUDY; BILIRUBIN,URINE NEGATIVE (NEGATIVE); GLUCOSE, URINE NEGATIVE (NEGATIVE); KETONES,URINE NEGATIVE (NEGATIVE); LEUKOCYTE ESTERASE,URINE NEGATIVE (NEGATIVE); NITRITE,URINE NEGATIVE (NEGATIVE); PROTEIN,URINE 100 mg/dL (NEGATIVE); URINE SPECIFIC GRAVITY 1.028; UROBILINOGEN,URINE NEGATIVE mg/dL (<2.0)
[2020-01-17 15:48] LABS: COLOR,URINE DARK YELLOW
--- NOTE | 2020-01-17 17:42 | RADIOLOGY REPORT (SQ) ---
EXAM DESCRIPTION: U/S OB TRANSVAG W/DOPPLER IMAGES COMPLETED DATE/TIME: 01/17/2020 5:23 pm REASON FOR STUDY: test positive, vomiting COMPARISON: None. TECHNIQUE: Transvaginal static and realtime grayscale images acquired of the pelvis. Additional salomón cted spectral and color Doppler images recorded. All images stored on PACs. CLINICAL AGE: Unknown [facility].61 LIMITATIONS: None. FINDINGS: UTERUS: No visualized intrauterine . RIGHT ADNEXA: Normal ovary with normal vascular flow. No adnexal free fluid. No adnexal masses. LEFT ADNEXA: Ovary not identified due to poor acoustical window. No adnexal free fluid. No adnexal masses. FREE FLUID: None. OTHER: No other significant finding. IMPRESSION: NO VISUALIZED INTRA- OR EXTRAUTERINE . bHCG LEVEL TOO LOW TO EXPECT VISUALIZATION OF . ECTOPIC CANNOT BE EXCLUDED. FOLLOW-UP ULTRASOUND AND SERIAL BHCG LEVELS STRONGLY RECOMMENDED TO ACCURATELY ASSESS STATU S. TECHNICAL DOCUMENTATION: JOB ID: [id number] 2010 [employer]- All Rights Reserved Reading location - IP/workstation name: [email or web address]
[2020-01-17 18:18] VITALS: BP 158/107
== END 2020-01-17 18:26 | disposition home or self-care (01) ==
LOC: ER 09:56
DX: R11.2 Nausea with vomiting, unspecified (principal); R19.7 Diarrhea, unspecified; Z32.01 Encounter for pregnancy test, result positive; R10.10 Upper abdominal pain, unspecified; R51.9 Headache, unspecified; R42 Dizziness and giddiness; I45.10 Unspecified right bundle-branch block; I10 Essential (primary) hypertension; E78.00 Pure hypercholesterolemia, unspecified; F17.200 Nicotine dependence, unspecified, uncomplicated; Z20.828 Contact with and (suspected) exposure to other viral communicable diseases
CPT/HCPCS: 93005; 99285; 96360; 36415; 87070; 87086; 87880; 84702; 83735; 84100; 84703; 85025; 87635; 81025; 80053; 81001; 84484; 87804; 71045; 76817; 93976; 93010; S0119; J7030; C9803

== ENCOUNTER 2020-02-23 14:43 | Emergency (ER) | payer SELFPAY ==
[2020-02-23] MEDS ORDERED: ONDANSETRON 4 MG TAB.RAPDIS PO ONE (15:08)
--- NOTE | 2020-02-23 15:11 | ER Document Report ---
ED Medical Screen (RME) - General Chief Complaint: Constipation Stated Complaint: CONSTIPATION Time Seen by Provider: 02/23/20 15:06 Primary Care Provider: MARIAM BAER MD [Primary Care Provider] - Follow up as needed Notes: Patient is a 40-year-old female presents emergency department with a chief complaint of constipation. Patient has not had a bowel movement in 3 days. She normally does 3 times a day. Patient admits to some nausea and vomiting. Last time patient vomited was around 2 PM. Exam: Tender left upper quadrant. I have greeted and performed a rapid initial assessment of this patient. A co mprehensive ED assessment and evaluation of the patient, analysis of test results and completion of medical decision making process will be conducted by an additional ED providers. TRAVEL OUTSIDE OF THE [place] IN LAST 30 DAYS: No - Related Data Allergies/Adverse Reactions: Sulfa (Sulfonamide Antibiotics) Adverse Reaction (Verified 02/23/20 15:07) Past Medical History - Past Medical History Cardiac Medical History: Reports: Hx Atrial Fibrillation - currently wearing heart monitor 07/2019, Hx Congestive Heart Failure, Hx Hypercholesterolemia, Hx Hypertension - Untreated currently Neurological Medical History: Reports: Hx Cerebrovascular Accident Renal/ Medical History: Denies: Hx Peritoneal Dialysis - Immunizations Hx Diphtheria, Pertussis, Tetanus Vaccination: Yes Physical Exam - Vital signs Vitals: Temp Pulse Resp BP Pulse Ox 98.5 F 98 16 150/93 H 99 02/23/20 14:52 02/23/20 14:52 02/23/20 14:52 02/23/20 14:52 02/23/20 14:52 Course - Vital Signs Vital signs: Temp Pulse Resp BP Pulse Ox 98.5 F 98 16 150/93 H 99 02/23/20 14:52 02/23/20 14:52 02/23/20 14:52 02/23/20 14:52 02/23/20 14:52 Doctor's Discharge - Discharge Referrals: MARIAM BAER MD [Primary Care Provider] - Follow up as needed
--- NOTE | 2020-02-23 15:46 | RADIOLOGY REPORT (SQ) ---
EXAM DESCRIPTION: ACUTE ABDOMEN SERIES IMAGES COMPLETED DATE/TIME: 02/23/2020 3:33 pm REASON FOR STUDY: constipation COMPARISON: None. NUMBER OF VIEWS: Three views. TECHNIQUE: Frontal chest, supine abdomen and upright/decubitus abdomen radiographic images acquired. LIMITATIONS: None. FINDINGS: CHEST: Lungs clear of infiltrates. FREE AIR: None. No abnormal gas collections. BOWEL GAS PATTERN: Nonobstructive pattern. No dilated loops or air fluid levels. CALCIFICATIONS: No suspicious calcifications. HARDWARE: None in the abdomen. SOFT TISSUES: No gross mass or suggestion of organomegaly. BONES: No acute fracture. No worrisome bone lesions. OTHER: No other significant finding. IMPRESSION: NO RADIOGRAPHIC EVIDENCE FOR ACUTE ABDOMINAL DISEASE. TECHNICAL DOCUMENTATION: JOB ID: [id number] 2010 [employer]- All Rights Reserved Reading location - IP/workstation name: [email or web address]
[2020-02-23 15:56] LABS: ABSOLUTE BASOPHILS # (AUTO) 0.1 10^3/uL (0.0-0.2); ABSOLUTE LYMPHOCYTES (AUTO) 1.9 10^3/uL (0.5-4.7); ABSOLUTE MONOCYTES (AUTO) 0.6 10^3/uL (0.1-1.4); ABSOLUTE NEUT (AUTO) 6.1 10^3/uL (1.7-8.2); BASOPHILS % (AUTO) 0.6 % (0-2); EOSINOPHILS % (AUTO) 0.4 % (0-6); HEMATOCRIT 35.6 % (36.0-47.0); HEMOGLOBIN 12.7 g/dL (12.0-15.5); LYMPHOCYTES % (AUTO) 22.3 % (13-45); MEAN CORPUSCULAR HEMOGLOBIN 35.5 pg (27.0-33.4); MEAN CORPUSCULAR HGB CONC 35.7 g/dL (32.0-36.0); MEAN CORPUSCULAR VOLUME 100 fl (80-97); MONOCYTES % (AUTO) 6.6 % (3-13); PLATELET COUNT 308 10^3/uL (150-450); RED BLOOD COUNT 3.58 10^6/uL (3.72-5.28); RED CELL DISTRIBUTION WIDTH 17.1 % (11.5-14.0); SEGMENTED NEUTROPHILS % (AUTO) 70.1 % (42-78); TOTAL CELLS COUNTED % (AUTO) 100 %; WHITE BLOOD COUNT 8.7 10^3/uL (4.0-10.5)
[2020-02-23 15:57] LABS: ALBUMIN 4.5 g/dL (3.5-5.0); ALKALINE PHOSPHATASE 163 U/L (38-126); ANION GAP 11 (5-19); ASPARTATE AMINO TRANSFERASE 46 U/L (14-36); BILIRUBIN,DIRECT 0.4 mg/dL (0.0-0.4); BILIRUBIN,TOTAL 0.8 mg/dL (0.2-1.3); BLOOD UREA NITROGEN 8 mg/dL (7-20); CALCIUM 10.1 mg/dL (8.4-10.2); CARBON DIOXIDE 26 mmol/L (22-30); CHLORIDE 100 mmol/L (98-107); GLUCOSE 102 mg/dL (75-110); POTASSIUM 3.2 mmol/L (3.6-5.0); TOTAL PROTEIN 8.5 g/dL (6.3-8.2)
[2020-02-23 19:24] LABS: APPEARANCE,URINE CLEAR; BILIRUBIN,URINE NEGATIVE (NEGATIVE); COLOR,URINE YELLOW; GLUCOSE, URINE NEGATIVE (NEGATIVE); KETONES,URINE 20 mg/dL (NEGATIVE); LEUKOCYTE ESTERASE,URINE NEGATIVE (NEGATIVE); NITRITE,URINE NEGATIVE (NEGATIVE); PROTEIN,URINE 30 mg/dL (NEGATIVE); URINE SPECIFIC GRAVITY 1.015; UROBILINOGEN,URINE NEGATIVE mg/dL (<2.0)
[2020-02-23] MEDS ORDERED: MINERAL OIL 30 ML UDCUP PR ONE (22:54)
--- NOTE | 2020-02-23 22:54 | ER Document Report ---
ED General - General Chief Complaint: Constipation Stated Complaint: CONSTIPATION Time Seen by Provider: 02/23/20 15:06 Primary Care Provider: MARIAM BAER MD [Primary Care Provider] - Follow up as needed TRAVEL OUTSIDE OF THE [place] IN LAST 30 DAYS: No - HPI Context: Chief Complaint: [Constipation] [This is a 40-year-old female presenting to the emergency department complaining of constipation x3 days. Patient states she is "usually pretty regular" but has not had a bowel movement in the past 3 days. Patient is complaining of discomfort on the left upper and lower side of her abdomen. Patient denies any history of Crohn's disease or ulcerative colitis. Patient denies any significant change in her diet. ] History obtained from [patient] Symptoms began:[3 days ago] Onset: [Gradual] Timing: [Gradual] Quality: [Abdominal pressure] Intensity: [4] Location: [Abdomen] Radiation: [Denies] [The pain does not migrate to a new location.] Aggravating factors: [none] Relieving factors: [none] [Denies] SOB Positive nausea Positive vomiting [Denies] sweats [Denies] fever [Denies] cough [Denies] calf or leg swelling or pain - Related Data Allergies/Adverse Reactions: Sulfa (Sulfonamide Antibiotics) Adverse Reaction (Verified 02/23/20 15:07) Home Medications: htn. lipitor. potassium. tylenol Past Medical History - General Information source: Patient - Social History Smoking Status: Current Every Day Smoker Chew tobacco use (# tins/day): No Frequency of alcohol use: Occasional Drug Abuse: None Family History: Reviewed & Not Pertinent, CAD, Malignancy Patient has homicidal ideation: No - Past Medical History Cardiac Medical History: Reports: Hx Atrial Fibrillation - currently wearing heart monitor 07/2019, Hx Congestive Heart Failure, Hx Hypercholesterolemia, Hx Hypertension - Untreated currently Neurological Medical History: Reports: Hx Cerebrovascular Accident Renal/ Medical History: Denies: Hx Peritoneal Dialysis - Immunizations Hx Diphtheria, Pertussis, Tetanus Vaccination: Yes Review of Systems - Review of Systems Notes: Review of systems as below unless otherwise stated in HPI. CONSTITUTIONAL [No] fever, [No] chills. EYES [No] eye pain. ENT [No] URI symptoms, [No] sore throat, [No] ear pain. CARDIOVASCULAR [No] chest pain, [No] palpitations, [No] edema. RESPIRATORY [No] Cough, [No] SOB, [No] wheezing. GASTROINTESTINAL Positive abdominal pain, positive nausea, [No] Diarrhea, positive vomiting, positive constipation, [No] melena, [No] rectal bleeding. GENITOURINARY [No] dysuria, [No] urinary frequency, [No] hematuria, [No] urinary urgency, [No] vaginal discharge, [No] vaginal bleeding. MUSCULOSKELETAL [No] Back pain. SKIN [No] Rash. NEUROLOGIC [No] Headache, [No] recent seizures, [No] paralysis,[No] parathesias. ENDOCRINE [No] polyuria. HEMO/LYMPATIC [No] easy brusing PSYCHIATRIC [No] depression. Physical Exam - Vital signs Vitals: Temp Pulse Resp BP Pulse Ox 98.5 F 98 16 150/93 H 99 02/23/20 14:52 02/23/20 14:52 02/23/20 14:52 02/23/20 14:52 02/23/20 14:52 - Notes Notes: CONSTITUTIONAL [Vital signs reviewed, Patient appears mildly uncomfortable, Alert and oriented X 3, Normal stature.] HEAD [Atraumatic, Normocephalic.] EYES [Eyes are normal to inspection, No discharge from eyes, Extraocular muscles intact, Sclera are normal, Conjunctiva are normal.] ENT [External ears normal to inspection, Nose examination normal, Mouth normal to inspection.] NECK [Normal ROM, No jugular venous distention, No meningeal signs, ] RESPIRATORY CHEST [Chest is nontender, Breath sounds normal, No respiratory distress.] CARDIOVASCULAR [RRR, No murmurs, Normal S1 S2, No rub, No gallop.] ABDOMEN [Abdomen is mildly tender to palpation in the left upper and lower quadrants, No pulsatile masses, No other masses, Bowel sounds normal, slight distention distension, No peritoneal signs, No hernias.] BACK [There is no CVA Tenderness, There is no tenderness to palpation, Normal inspection.] UPPER EXTREMITY [Inspection normal, No cyanosis, No clubbing, No edema, LOWER EXTREMITY [Inspection normal, No cyanosis, No clubbing, No edema, No calf tenderness, NEURO [No focal motor deficits, No focal sensory deficits, Speech normal.] SKIN [Skin is warm, Skin is dry, Skin is normal color.] PSYCHIATRIC [Normal affect. ] Course - Re-evaluation Re-evalutation: 02/24/20 05:45 Patient states she feels much better after the enemas. Patient had positive results with 2 rounds of soapsuds enemas. Results of ED MSE discussed with patient. Emergency signs and symptoms, reasons to return to the emergency department discussed with patient. Patient states "I feel a whole lot better than I did yesterday." - Vital Signs Vital signs: Temp Pulse Resp BP Pulse Ox 98.1 F 100 18 113/73 100 02/24/20 05:01 02/24/20 05:01 02/24/20 05:01 02/24/20 05:01 02/24/20 05:01 - Laboratory Results Result Diagrams: 02/23/20 15:18 02/23/20 15:18 Laboratory Results Interpreted: 02/23/20 02/23/20 02/23/20 15:18 15:18 19:00 RBC 3.58 L Hct 35.6 L MCV 100 H MCH 35.5 H RDW 17.1 H Potassium 3.2 L AST 46 H Alkaline Phosphatase 163 H Total Protein 8.5 H Urine Protein 30 H Urine Ketones 20 H Critical Laboratory Results Reviewed: No Critical Results Attending or Supervising Physician who Reviewed Labs: SANDRO HUTCHISON IV - Radiology Results Critical Radiology Results Reviewed: No Critical Results Attending or Supervising Physician who Reviewed Radiology: SANDRO HUTCHISON IV Discharge - Discharge Clinical Impression: Constipation Qualifiers: Constipation type: unspecified constipation type Qualified Code(s): K59.00 - Constipation, unspecified Condition: Stable Disposition: HOME, SELF-CARE Instructions: Constipation ([facility]) Additional Instructions: supervisor contingents a couple of fleets enemas at [facility] and use as directed. You can also crop picker some MCT oil and use that as directed. One other thing you can do to help with constipation is to buy some psyllium husk fiber capsules. You can buy the generic brand, you do not have to buy the name brand Metamucil, and. I recommend taking 5 to 6 capsules a day. Return to the Emergency Department without delay if any worse. HOME CARE INSTRUCTIONS & INFORMATION: Thank you for choosing us for your medical needs. We hope you're satisfied with the care you received. After you leave, you must properly care for your problem and, at the same time, observe its progress. Any condition can change. Some illnesses can change rapidly over hours or days. If your condition worsens, return to the Emergency Department or see your physician promptly. ABOUT YOUR X-RAYS AND EKG'S: If you had an EKG or X-rays taken, they have been read by the Emergency Physician. The X-rays and EKG's will also be read by a Radiologist or Jai [employer] Player within 24 hours. If discrepancies are noted, you will be notified by telephone. Please be certain the ED has a correct telephone number & address where you can be reached. Also, realize that some fractures or abnormalities do not show up on initial X-rays. If your symptoms continue, see your physician. ABOUT YOUR LABORATORY TEST: If you had laboratory tests, the results have been reviewed by the Emergency Physician. Some test results (for example cultures) may not be available for several days. You will be contacted if any test result shows you need additional treatment. Please be certain the ED has a correct telephone number and address where you can be reached. ABOUT YOUR MEDICATIONS: You will receive instructions on how to take your medicine on the prescription label you receive. Additional information may be provided by the Pharmacy. If you have questions afterwards, call the ED for clarification or further instructions. Some prescribed medications may cause drowsiness. Do not perform tasks such as driving a car or operating machinery without consulting your Pharmacist. If you feel you need a refill of pain medication, your condition will need re-evaluation. Please do not call for a refill of any medication. ABOUT YOUR SIGNATURE: Signature of this document acknowledges to followin. Understanding that you received emergency treatment and that you may be released before al medical problems are known or treated. Please be certain the ED has a correct phone number & address where you can be reached. 2. Acknowledgement that you will arrange for follow-up care as recommended. 3. Authorization for the Emergency Physician to provide information to your follow-up Physician in order to maximize your care. AT ANY TIME, IF YOUR SYMPTOMS CHANGE SIGNIFICANTLY OR WORSEN OR YOU DEVELOP NEW SYMPTOMS, RETURN TO THE EMERGENCY DEPARTMENT IMMEDIATELY FOR RE-EVALUATION. OUR GOAL IS TO PROVIDE EXCELLENT MEDICAL CARE! WE HOPE THAT WE HAVE MET YOUR EXPECTATIONS DURING YOUR EMERGENCY DEPARTMENT VISIT AND THAT YOU FEEL YOU HAVE RECEIVED EXCELLENT CARE! Referrals: MARIAM BAER MD [Primary Care Provider] - Follow up as needed
[2020-02-24] MEDS ORDERED: MAGNESIUM CITRATE 296 ML BOTTLE PO ONE (02:53)
[2020-02-24] MEDS ORDERED: MINERAL OIL 30 ML UDCUP PR ONE (04:04)
[2020-02-24] MEDS ORDERED: ACETAMINOPHEN 325 MG TABLET PO ONE (04:29)
[2020-02-24] MEDS ORDERED: ONDANSETRON 4 MG TAB.RAPDIS PO ONE (04:29)
[2020-02-24] MEDS ORDERED: ONDANSETRON ODT 4 MG TAB (6 TAB/ER DISP) PO PRN (05:50)
[2020-02-24 06:14] VITALS: BP 129/86
== END 2020-02-24 06:14 | disposition home or self-care (01) ==
LOC: ER 14:43
DX: K59.00 Constipation, unspecified (principal); R11.2 Nausea with vomiting, unspecified; R10.812 Left upper quadrant abdominal tenderness; R10.814 Left lower quadrant abdominal tenderness; I10 Essential (primary) hypertension; E78.00 Pure hypercholesterolemia, unspecified; F17.200 Nicotine dependence, unspecified, uncomplicated; Z79.899 Other long term (current) drug therapy; Z88.2 Allergy status to sulfonamides
CPT/HCPCS: 99284; 36415; 83690; 85025; 80053; 81001; 74022; J3490 ×3; S0119 ×2